=== PATIENT | female | born 1980 | race Caucasian/White ===

== ENCOUNTER 2024-06-27 19:25 | Emergency (ER) | payer OTHER, SELFPAY ==
--- NOTE | 2024-06-27 | ECG_ITS ---
Test Reason : OVERDOSE Blood Pressure : / mmHG Vent. Rate : 103 BPM Atrial Rate : 103 BPM P-R Int : 142 ms QRS Dur : 084 ms QT Int : 378 ms P-R-T Axes : 065 054 043 degrees QTc Int : 495 ms Sinus tachycardia Otherwise normal ECG No previous ECGs available Referred By: Generic ED Physician Electronically Signed By:RAFAT QIU MD
--- NOTE | ~2024-06-27 | XR_ITS ---
EXAMINATION: XR RIBS, BILATERAL CLINICAL INFORMATION: Status post CPR COMPARISON: None available. TECHNIQUE: 3 views of the bilateral ribs were obtained. FINDINGS: Lungs are clear. No consolidation, pneumothorax, or pleural effusion. The cardiomediastinal silhouette and pulmonary vasculature are normal. Osseous structures are unremarkable. Ribs are intact. No fractures are identified. XR/XR ribs BI min 4V w CXR1V IMPRESSION: Unremarkable examination. Electronically signed by: Clifford Estes DO 06/27/2024 09:48 PM EST
[2024-06-27 19:28] VITALS: BP 166/100; PULSE 98; O2SAT 100
[2024-06-27 19:32] VITALS: BP 145/90; PULSE 102; RESP 18; TEMP 36.9; O2SAT 99; BMI 30.7
[2024-06-27 19:41] VITALS: BP 145/90; PULSE 110; RESP 18; TEMP 36.9; O2SAT 98
--- NOTE | 2024-06-27 19:55 | ED.GENADULT ---
HPI - General Adult General Chief complaint: Overdose Stated complaint: OVERDOSE Time Seen by Provider: 06/27/24 19:49 History of Present Illness ED Provider: Dr. Segundo HPI narrative: 43 y/o F patient; without significant PMH; presents via EMS from home with report of unresponsiveness requiring Narcan. The patient states she smoked marijuana with a friend this evening. She also had a few glasses of wine. She denies any other drug use knowingly. EMS report patient was found lying on the ground unresponsive. Narcan was administered x2. Patient did have a brief course of CPR due to pulselessness that resolved after second narcan dose. At this time she denies any complaints. She states that this batch of marijuana was not one she had smoked before. She denies suicidal or homicidal ideation. Related Data Previous Rx's ?Medication ?Instructions ?Recorded naloxone 4 mg/actuation nasal 4 mg intranasal Q2M PRN opioid 06/27/24 spray (Narcan) overdose #2 ea Allergies Allergy/AdvReac Type Severity Reaction Status Date / Time acetaminophen [From VICODIN] Allergy Unknown SOB/HIVES Unverified 05/06/20 15:23 hydrocodone [From VICODIN] Allergy Unknown SOB/HIVES Unverified 05/06/20 15:23 Sulfa (Sulfonamide Allergy Unknown Hives Verified 06/27/24 19:35 Antibiotics) sulfamethoxazole Allergy Unknown HIVES Unverified 05/06/20 15:23 [From Bactrim] trimethoprim [From Bactrim] Allergy Unknown HIVES Unverified 05/06/20 15:23 Review of Systems Review of Systems: Yes all other systems are reviewed and are negative PMFSH Past Medical History Attestation statement: The following information was validated with the patient. Source: unable to obtain Social History Social History Advance Directives: No Advance Directives Information Provided: No Do you have a plan to hurt others: No Plan Physical Exam ED Vital Signs: Vital Signs - 24 hr 06/27/24 19:32 06/27/24 19:41 Temperature 98.4 F 98.4 F Pulse Rate 102 H 110 H Respiratory Rate 18 18 Blood Pressure 145/90 H 145/90 H Pulse Oximetry 99 98 Oxygen Delivery Method Room Air Room Air BMI result Body Mass Index 30.7 Patient is afebrile, tachycardic, and mildly hypertensive Const General: cooperative and no acute distress Orientation/consciousness: patient oriented x3 HENMT Head: Yes normal to inspection and Yes atraumatic Eyes General: appearance normal, both eyes and all related structures Pupils: Equal, round and reactive pupils present EOM: EOMs intact bilaterally Neck Neck: Yes normal visual inspection, Yes full ROM, Yes supple and No tender Chest Chest palpation & inspection: normal inspection of the chest and normal palpation of entire chest wall Resp Effort & Inspection: normal respiratory effort, able to speak in complete sentences, no cough and no respiratory distress Auscultation: clear to auscultation bilaterally Cardio Rate: regular rate Rhythm: regular rhythm Peripheral pulses: Peripheral pulses 2+ throughout GI Inspection: No Abdominal wall edema and No distended Palpation (GI): Soft to palpation, not firm, nontender, no guarding and not rigid Auscultation: normal bowel sounds Back/Spine/Pelvis Back: No back tenderness Neuro General: patient oriented x3 Cranial nerves: Yes Equal, round and reactive pupils present Course Course Course Narrative: Patient is afebrile and hemodynamically stable. Will plan on period of observation. Will obtain XR Ribs as patient did have approx 30 - 60 seconds of CPR. I offered the patient a utox to confirm what she had taken tonight but she declined. Patient was observed for 2 hours without further symptoms requiring narcan. I do not appreciate obvious or displaced rib fx on XR. Patient does not endorse rib or sternum tenderness. No chest wall tenderness on exam. No chest wall ecchymosis on exam. Plan: Discharge to home with PCP follow up Return precautions given Discharge Plan Discharge Clinical Impression: Drug overdose Patient Disposition: Home, Self-Care Instructions: Adult Overdose (ED) Additional Instructions: As we discussed, you were seen today after an overdose - likely of an opiate medication. Recommend you follow up with your PCP within the next 1 - 2 days to discuss your recent emergency department visit. Return to the emergency department with any thoughts of harming yourself or others. Prescriptions: New naloxone [Narcan] 4 mg/actuation spray,non-aerosol 4 mg intranasal Q2M PRN (Reason: opioid overdose) Qty: 2 0RF Rx Instructions: spray 1 dose into ONE nostril; alternate nostrils w each dose until help arrives Print Language: Martiniquais
[2024-06-27 22:10] VITALS: BP 150/79; PULSE 99; RESP 16; TEMP 36.8; O2SAT 98
== END 2024-06-27 22:11 | disposition home or self-care (01) ==
PROVIDERS: Emergency Provider Emergency Medicine; PCP Internal Medicine
DX: R40.4 Transient alteration of awareness (principal); T50.901A Poisoning by unspecified drugs, medicaments and biological substances, accidental (unintentional), initial encounter; Y92.410 Unspecified street and highway as the place of occurrence of the external cause
CPT/HCPCS: 71111; 93005; 99283; 99285

== ENCOUNTER → 2024-06-27 19:37 | Outpatient (BNV) | payer OTHER, SELFPAY | PROVIDERS: Emergency Provider Emergency Medicine; PCP Internal Medicine; Visit Provider Internal Medicine Cardiovascular Disease | DX: R00.0 Tachycardia, unspecified (principal) | CPT/HCPCS: 93010 ==

== ENCOUNTER 2024-09-10 09:08 | Outpatient (AMB) | payer OTHER, SELFPAY ==
--- NOTE | 2024-09-10 09:19 | MHC.PC.OV ---
Vital Signs 09/10/24 09:20 Height 5 ft 2 in Weight 158 lb BMI 28.9 BP 132/90 H Blood Pressure Location Lt brachial Position Sitting Pulse 112 H Pulse Source Pulse Oximeter Pulse Oximetry (%) 97 Oxygen Delivery Method Room Air Intake Visit Reasons: Establish care, MED review Intake Note: Patient here to establish care, Med review [employer] Internship Required: No Accompanied by: Self / Same As Patient Allergies Penicillins Allergy (Intermediate, Verified 09/10/24 09:54) hives,SOB acetaminophen [From VICODIN] Allergy (Unknown, Verified 09/10/24 09:54) SOB/HIVES hydrocodone [From VICODIN] Allergy (Unknown, Verified 09/10/24 09:54) SOB/HIVES Sulfa (Sulfonamide Antibiotics) Allergy (Unknown, Verified 09/10/24 09:54) Hives sulfamethoxazole [From Bactrim] Allergy (Unknown, Verified 09/10/24 09:54) HIVES trimethoprim [From Bactrim] Allergy (Unknown, Verified 09/10/24 09:54) HIVES Medication List - Last Reconciled 09/10/24 by Wendi Ricci PA-C disulfiram 250 mg PO DAILY naloxone 4 mg/actuation (Narcan) 4 mg intranasal Q2M PRN sertraline mg PO DAILY Tobacco use date assessed: 09/10/24 Dental Screening Dental Screen Date: 09/10/24 Did you have a dental visit in the last 12 months?: Yes Did you have a dental problem in the last 6 months where you did not have access to dental care?: No Was dental information given to patient?: Patient has dentist HPI Establish care, MED review HPI Details 43-year-old female coming to the office for the 1st time.? In review of the notes, patient was seen in [facility] 06/27/2024 for likely drug overdose given naloxone and discharged home. Patient tells us today she was previously being seen by [facility]. She was being treated for history of alcohol dependency and anxiety and depression and also monitored for elevated blood pressures. She tells us today she is working on smoking cessation and has tried patches in the past but they give her skin reactions. She also mentioned she has history of seasonal allergies but has noticed black-colored mold in her apartment that seems to be exacerbating her allergies that she is concerned about. She has no other concerns today. [facility] Medical History (Updated 09/10/24 @ 11:01 by Wendi Ricci PA-C) Hx LEEP (loop electrosurgical excision procedure), cervix, Surgical History (Updated 09/10/24 @ 09:25 by Yuridia Landrum Yahir) History of repair of ACL Family History (Updated 09/10/24 @ 10:01 by Wendi Ricci PA-C) Maternal Uncle Kidney malignancy Mother Breast cancer Thyroid cancer Maternal Grandfather Lung cancer Paternal Grandfather Lung cancer Social History (Updated 08/08/24 @ 13:39 by FLAVIO Rodriguez) Housing: House Alcohol intake: former Patient Tobacco Use Status: Current everyday Tobacco user Tobacco use type: Cigarette Cigarettes Per Day: 5 e-Cigarette/Vaping Use: Never Used Second Hand Smoke Exposure: No Substance Use Type: Marijuana service: No Current occupational status: employed Current occupational exposures/hazards: No Cognitive needs: No Hearing needs: No Vision needs: Yes Female Reproductive History Menstrual control method: progestin IUCD Questionnaire PHQ-9 Over the last 2 weeks, how often have you been bothered by any of the following problems? 1. Little interest or pleasure in doing things: several days 2. Feeling down, depressed, or hopeless: several days 3. Trouble falling or staying asleep, or sleeping too much: several days 4. Feeling tired or having little energy: several days 5. Poor appetite or overeating: not at all 6. Feeling bad about yourself - or that you are a failure or have let yourself or your family down: several days 7. Trouble concentrating on things, such as reading the newspaper or watching television: nearly every day 8. Moving or speaking so slowly that other people could have noticed. Or the opposite - being so fidgety or restless that you have been moving around a lot more than usual: nearly every day 9. Thoughts that you would be better off or of hurting yourself in some way: not at all Total score: 11 Depression Screening Interpretation: Positive Depression Screening Follow-up: Existing condition and In treatment Depression Screening Done: Yes 28224 - PHQ-9 Billing: Yes Source: Developed by Drs. Simba Mills, Tressa Kirkland, Charles Pratt and colleagues, with an educational jessica from [employer]. Thrive Questionnaire Date Thrive assessed: 09/10/24 I am a: Patient What is your living situation today?: I have a steady place to live Within the past 12 months, did the food you bought not last and you didn't have the money to get more?: Never true Within the past 12 months, did you worry whether your food would run out before you got money to buy more?: Never true Do you have trouble paying for medicines?: No Do you have trouble getting transportation to medical appointments?: No Do you have trouble paying your heating and electricity bill?: No Do you have trouble taking care of your child, family member or friend?: No Do you have trouble with day-to-day activities such as bathing, preparing meals, shopping, managing finances, etc.?: No Are you currently unemployed and looking for a job?: No Are you interested in more education?: No Please select the resources that you would like help with: None Currently or been in a relationship where the following occur: No concerns reported THRIVE Score: 0 AUDIT C Alcohol Use Questionnaire (AUDIT-C) 1. How often do you have a drink containing alcohol?: Never Total Score: 0 RACHEL-7 AMB Questionnaire RACHEL-7 Date RACHEL - 7 assessed: 09/10/24 Feeling nervous, anxious, or on edge: 3 = Nearly every day Not being able to stop or control worryin = Nearly every day Worrying too much about different things: 3 = Nearly every day Trouble relaxin = Nearly every day Being so restless that it is hard to sit still: 3 = Nearly every day Becoming easily annoyed or irritable: 3 = Nearly every day Feeling afraid as if something awful might happen: 2 = More than half the days Total RACHEL-7 score (0-4 normal; 5-9 mild; 10-14 moderate; 15-21 severe): 20 Source: Developed by Drs. Simba Mills, Tressa Kirkland, Charles Pratt and colleagues, with an educational jessica from [employer]. RACHEL-7 Assessment Billing RACHEL-7 Assessment Tool: RACHEL-7 Assessment 67370 Review of Systems Const Denies body aches, Denies chills, Denies fever(s), Denies headache(s) and Denies poor appetite Eyes Reports no additional complaints ENT Denies dizziness and Denies headache(s) Card Denies chest pain, Denies syncope, Denies edema, Denies irregular heart rhythm, Denies lightheadedness and Denies dyspnea Resp Denies cough and Denies dyspnea GI Denies abdominal pain, Denies constipation, Denies diarrhea, Denies nausea and Denies vomiting Reports no additional complaints Musc Reports no additional complaints and Denies abnormal gait Skin/Breast Reports system reviewed and no additional complaints, except as documented Neuro Denies abnormal gait, Denies dizziness, Denies syncope and Denies headache(s) Psych Reports no additional complaints Physical exam (Primary Care) BMI result Body Mass Index 28.9 Tobacco/Smoking Status: Tobacco use Status Patient Tobacco Use Status Never used Tobacco 08/28/24 13:03 Are you ready to quit: Yes Tobacco cessation counseling provided: Yes Items discussed: Nicotine replacement Relapse Prevention: weight gain after smoking is common and discussed dietary, exercise and/or lifestyle changes Number of minutes spent counselin CPT code: 31644 - 4-10 Minutes Depression Screening Interpretation: Positive Depression Screening Follow-up: Existing condition and In treatment Currently or been in a relationship where the following occur: No concerns reported Const General: cooperative, healthy appearing, comfortable and no acute distress Orientation/consciousness: patient oriented x3 HENMT Head: Yes normocephalic Ears: hearing grossly normal bilaterally General nose exam: Normal external nose present Eyes General: appearance normal, both eyes and all related structures Conjunctivae: conjunctivae normal Neck Neck: Yes full ROM and Yes no lymphadenopathy Resp Effort & Inspection: normal respiratory effort Auscultation: clear to auscultation bilaterally, no crackles, no rales, no rhonchi and no wheezes Cardio Rate: regular rate Rhythm: regular rhythm Skin General skin exam: no rashes or lesions noted Neuro General: patient oriented x3 Gait exam (Neuro): Normal gait present Extrem General: Yes normal to inspection, Yes full ROM and No edema Psych Affect: normal affect Attitude: cooperative Insight: Good insight present (Psych) Judgement: Good judgement present (Psych) Coding Level of Care Code New Pt Level 4 (44112) Diagnoses Tobacco abuse Z72.0 Depression F32.A Anxiety F41.9 Alcohol abuse F10.10 Difficulty concentrating R41.840 Elevated blood pressure reading without diagnosis of hypertension R03.0 Seasonal allergies J30.2 Screening for breast cancer Z12.39 Screening for cervical cancer Z12.4 Additional Codes Vital Signs *Quality* - CPT code: 22619 - 4-10 Minutes ([id number]) PHQ-9 - 16422 - PHQ-9 Billing: Yes ([id number]) RACHEL-7 Assessment Billing - RACHEL-7 Assessment Tool: RACHEL-7 Assessment 14576 ([id number]) Assessment & Plan Assessment & Plan (1) Tobacco abuse: Code(s): Z72.0 - Tobacco use Category: Medical Plan: Patient has been working on smoking cessation. Smoking cigarettes and the use of tobacco can be harmful. We discussed the importance of stopping and options to aid in smoking cessation. Prescription sent for nicotine lozenges. (2) Depression: Code(s): F32.A - Depression, unspecified Category: Medical Plan: Patient has a history of depression was previously being treated with sertraline 50 mg but has mentioned in the last several weeks she has had to cut her pills it have to maintain her prescription longer. She is requesting to increase her sertraline however given that she has been taking a 25 mg dose recommend restarting 50 mg for 1 month and tapering up as appropriate. Patient agrees with the plan. Referral placed to outpatient psych clinic as well as counseling for further management. (3) Anxiety: Code(s): F41.9 - Anxiety disorder, unspecified Category: Medical Plan: Plan to restart the sertraline 50 mg. Referral placed for counseling and outpatient psych clinic. (4) Alcohol abuse: Code(s): F10.10 - Alcohol abuse, uncomplicated Category: Social Hx Plan: Patient currently on Antabuse with good benefit. Was previously getting this from her last PCP. Declining referral to comprehensive Care Clinic. (5) Difficulty concentrating: Code(s): R41.840 - Attention and concentration deficit Category: Medical Plan: Patient complaining of difficulty concentrating and previously diagnosed with ADHD as a child. Referral placed to outpatient psych clinic for establishment of diagnoses and treatment. (6) Elevated blood pressure reading without diagnosis of hypertension: Code(s): R03.0 - Elevated blood-pressure reading, without diagnosis of hypertension Category: Medical Plan: Blood pressure mildly elevated today 132/90 patient states she is under lot of stress but was told she has elevated blood pressure in the past. Prescription sent for automatic blood pressure cuff and advised patient to take blood pressure daily and bring log to next appointment. If blood pressure remains elevated we will consider starting low-dose blood pressure medication. (7) Seasonal allergies: Code(s): J30.2 - Other seasonal allergic rhinitis Category: Medical Plan: Patient has a history of seasonal allergies states that her apartment has dark-colored mold in the windows and on the ceilings. She is concerned this may be black mold that may be contributing to her allergy symptoms. 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 Regarding the mold discussed with patient we do not tests the blood for this type of mold and she should have her apartment inspected if she is concerned about possible mold toxicity. (8) Screening for breast cancer: Code(s): Z12.39 - Encounter for other screening for malignant neoplasm of breast Category: Medical Plan: Referral placed for mammogram. (9) Screening for cervical cancer: Code(s): Z12.4 - Encounter for screening for malignant neoplasm of cervix Category: Medical Plan: Referral placed to gynecology for cervical cancer screening. Plan Ordered for updated blood work and we will have patient follow up in 1 month for annual physical. This note was constructed using voice recognition software. While every effort has been made to ensure accuracy and cross country and track and field coach, still areas may have been included sometimes these areas may affect the content or meeting of the given symptoms. Total time spent caring for the patient today was 30 minutes. This includes time spent before the visit reviewing the chart, time spent during the visit, and time spent after the visit and documentation. Orders: Orders Complete Blood Count Auto Diff Today Z00.00 - Encounter for general adult medical examination without abnormal findings Lipid Panel Today E78.00 - Pure hypercholesterolemia, unspecified Vitamin B12 and Folate Today Z00.00 - Encounter for general adult medical examination without abnormal findings MM tomosynthesis screening BI Today Z12.31 - Encounter for screening mammogram for malignant neoplasm of breast Comprehensive Met. Panel Today Z00.00 - Encounter for general adult medical examination without abnormal findings TSH reflex Free T4 Today Z00.00 - Encounter for general adult medical examination without abnormal findings Free T4 (Free Thyroxine) Today Z00.00 - Encounter for general adult medical examination without abnormal findings Vitamin D 25-OH Total Today Z00.00 - Encounter for general adult medical examination without abnormal findings Referrals Counseling Referral F32.A - Depression, unspecified, F41.9 - Anxiety disorder, unspecified Psychiatry Outpatient Consultation Service F32.A - Depression, unspecified, F41.9 - Anxiety disorder, unspecified, R41.840 - Attention and concentration deficit THORACIC MEDICINE SPECIALIST Referral Z12.4 - Encounter for screening for malignant neoplasm of cervix Allergy & Immunology Referral J30.2 - Other seasonal allergic rhinitis Medications: New sertraline 50 mg PO DAILY 90 tabs 3RF disulfiram 250 mg PO DAILY 90 tabs 2RF miscellaneous medical supply (Blood Pressure Cuff) As directed once daily 1 ea 0RF nicotine (polacrilex) 4 mg buccal Q8H PRN 24 ea 1RF nicotine cravings
[2024-09-10 09:20] VITALS: BP 132/90; PULSE 112; O2SAT 97; BMI 28.9
--- OUTSIDE RECORDS SUMMARY | 2024-09-10 09:32 | XMS_ITS | Encounter Summary ---
Author Organization [employer] Address [address] [place] [address] [address] [place] [address] Care Team Providers Care Well Surveying Engineer Name Role Phone Unavailable Primary Care Provider Unavailabl e Reason for Visit * Reason Onset Date Comments case back from lab 12/28/2023 Encounter Details Date Type Department Care Team ([facility] Contact Info) Description 12/28/2023 Telephone [facility] [address] [place] [address] Gladys Greenwood BDS case back from lab Social History Tobacco Use Types Packs/Day Years Used Date Smoking Tobacco: Every Day Cigarettes Smokeless Tobacco: Never Alcohol Use Standard Drinks/Week Comments Yes 0 (1 standard drink = 0.6 oz pur e alcohol) Comments Unknown Sex and Gender Information Value Date Recorded Sex Assigned at Female 06/19/2022 10:16 AM EDT Legal Sex Female 10:16 AM EDT Gender Identity Female 07/17/2023 1:06 PM EST Sexual Orientation Choose not to disclose 2022 1:06 PM EST documented as of this encounter Miscellaneous Notes * Telephone Encounter - Neelam Kincaid - 01/10/2024 9:51 AM EDT Good morning Doctor ,patient called to see if her dentures came in would like the soonest apt you have available . * Telephone Encounter - Florencia Fraser - 01/07/2024 8:09 AM EDT Patient is checking in on the status of her case and when she can have an appt for delivery. * Telephone Encounter - Neelam Kincaid - 12/28/2023 11:51 AM EDT Patient would like the doctor to call her she has a question .about her dentures documented in this encounter Plan of Treatment Not on file documented as of this encounter Visit Diagnoses Not on filedocumented in this encounter
--- OUTSIDE RECORDS SUMMARY | 2024-09-10 09:32 | XMS_ITS | Clinical Summary ---
Author Organization [employer] [facility] Address [address] [place] [address] [place] [address] Care Team Providers Care Crime Scene Photographer Name Role Phone Unavailable Primary Care Provider Unavailabl e Allergies Active Allergy Reactions Criticality Noted Date Comments Amoxicillin 07/26/2023 Bee Venom 07/26/2023 Penicillins 07/26/2023 Sulfa Antibiotics 07/26/2023 Medications disulfiram (Antabuse) 250 MG tablet 06/08/2023 Active sertraline (Zoloft) 50 MG tablet 06/11/2023 Active Active Problems No known active problems Social History Tobacco Use Types Packs/Day Years Used Date Smoking Tobacco: Every Day Cigarettes Smokeless Tobacco: Never Tobacco Cessation:Ready to Q uit: Yes; Counseling Given: Yes Alcohol Use Standard Drinks/Week Comments Yes 0 (1 standard drink = 0.6 oz pur e alcohol) Comments Unknown Sex and Gender Information Value Date Recorded Sex Assigned at Female 06/19/2022 10:16 AM EDT Legal Sex Female 10:16 AM EDT Gender Identity Female 07/17/2023 1:06 PM EST Sexual Orientation Choose not to disclose 2022 1:06 PM EST Plan of Treatment Health Maintenance Due Date Last Done Comments CT Colonography 1978 Colonoscopy 1978 Colorectal Cancer Screening 1978 Dental Oral Exam 1978 Dental Prophylaxis 1978 Dental X-Ray: Bitewings 1978 Depression Screening 1978 FIT DNA/Cologuard 1978 FIT 1978 FOBT 1978 HIV Screening 1978 Lipid Panel 1978 SDOH Screening 1978 Sigmoidoscopy 1978 Pneumococcal Vaccine: Pediatrics (0 to 5 Years) and At-Risk Patients (6 to 64 Years) (1 of 2 - PCV) 1984 Alcohol/Substance Use Screening 1990 Hepatitis C Screening 1996 Hepatitis B Vaccines (1 of 3 - 19+ 3-dose series) 1997 Pap Smear 1999 Cervical Cancer Screening 2008 HPV/Cotest 2008 Mammogram 2018 DTaP/Tdap/Td Vaccines (4 - T d or Tdap) 02/18/2023 02/18/2013, 04/18/2012, 05/15/2007 COVID-19 Vaccine (3 - 2023-2 5 season) 2024 01/18/2021, 12/21/2020 Influenza Vaccine (#1) 2024 3, 05/08/2012, 11/07/2010 Tobacco Screening 01/10/2025 01/11/2024 Dental X-Ray: Full Mouth 07/27/2026 07/26/2023 Zoster Vaccines (1 of 2) 2028 RSV Patients and Patients Aged 60 years or older (1 - 1-dose 75+ series) 2053 HIB Vaccines Aged Out No longer eligi ble based on patient's age to complete this topic HPV Vaccines Aged Out No longer eligi ble based on patient's age to complete this topic Hepatitis A Vaccines Aged Out No long er eligible based on patient's age to complete this topic IPV Vaccines Aged Out No longer eligi ble based on patient's age to complete this topic Meningococcal Vaccine Aged Out No heather sanjay eligible based on patient's age to complete this topic RSV under 20 months Aged Out No longe r eligible based on patient's age to complete this topic Rotavirus Vaccines Aged Out No longer eligible based on patient's age to complete this topic Procedures Procedure Name Priority Date/Time Associated Diagnosis Comments PANORAMIC RADIOGRAPHIC IMAGE Routine 07/26/2023 3:30 PM EST from Last 3 Months or Most Recently Relevant to Health Maintenance Insurance [employer] [employer] ADULT Member Subscriber Plan / Payer (Ef fective 2023-Present) Name:Karine Wilkerson Relation to Subscriber:Self Name:Danuta Wilkersonnishelley Rowan Payer ID:Not on file Group ID:Not on file Type:Not on file Address: [place] [phone]
--- OUTSIDE RECORDS SUMMARY | 2024-09-10 09:32 | XMS_ITS | Encounter Summary ---
Author Organization [employer] Address [address] [place] [address] [address] [place] [address] Care Team Providers Care Abrading Machine Tender Name Role Phone Unavailable Primary Care Provider Unavailabl e Encounter Details Date Type Department Care Team (Late st Contact Info) Description 09/05/2023 Abstract [facility] ADULT [facility] [address] [place] [address] Gladys Greenwood BDS Social History Tobacco Use Types Packs/Day Years [...] PM EST documented as of this encounter Plan of Treatment Not on file documented as of this encounter Visit Diagnoses Not on filedocumented in this encounter
--- OUTSIDE RECORDS SUMMARY | 2024-09-10 09:32 | XMS_ITS | Encounter Summary ---
Author Organization [employer] Address [address] [place] [address] [address] [place] [address] Care Team Providers Care Business Continuity Global Director Name Role Phone Unavailable Primary Care Provider Unavailabl e Reason for Visit * Reason Onset Date Comments Prior Authorization 08/07/2023 Encounter Details Date Type Department Care Team ([facility] st Contact Info) Description 08/07/[address] [facility] ADULT D[facility] [address] [place] [address] Gladys Greenwood BDS Prior Authorization Social History Tobacco Use Types Packs/Day Years [...] encounter Miscellaneous Notes * Telephone Encounter - Florencia Fraser - 08/07/2023 3:02 PM EST Patient called in stating that she contacted the insurance and nothing ahs been submitted. I explined to the patient that the insurance covers dentures every 7years and she is not due until 04/03/2024. She stated that she contacted the insurance and they stated that it can be submitted, it would get denied and then it would have to be submitted again and they would approved due to her being 7 months shy of the 7 years. I informed patient that I would relay information to the office and they would take it from there. documented in this encounter Plan of Treatment Not on file documented as of this encounter Visit Diagnoses Not on filedocumented in this encounter
--- OUTSIDE RECORDS SUMMARY | 2024-09-10 09:33 | XMS_ITS | Data Portability ---
Author Organization [facility], , [facility] Address [address] [place] [address] Care Team Providers Care Rail Walker Name Role Phone GUANACO COSME Primary Care Provide r Assessment Encounter Date Assessment Date Assessment LastModified by Organization Details LastModified Time 06/13/2013 06/13/2013 Please follow up in 2 weeks. [email or web address] Not available 06/13/2013 12:09:33 Plan of Treatment Reminders Order Date Submit Date Provider Last Modified By Organization Details Last Modified Time Details Appointments None recorded. Lab drugs of abuse screen (6) - Drug Name/Date and Time last dose:Morp kyle 6am 02/06/2013 , Oxycodone 6 am 02/06/20132012 013 [facility], [address] [place] [address], [address], 3 04:16:55 opiates, expanded by GC/ms urine - Morphine 6am 02/06/2013 , Oxycodone 6 am 02/06/20132012 013 [facility], [address] [place] [address], [address], 3 04:16:55 drugs of abuse screen (6) - Drug Name/Date and Time last dose:MORP KYLE 05/07/13 @ 6:30 AMOXYCODO NE @ 6:30 AM 2012 013 [facility], [address] [place] [address], [address], 3 07:21:12 opiates, expanded by GC/ms urine [address] [facility], [address] [facility], [place], [address], 3 22:10:00 Referral orthopedi c referral - Current pt of yours, right knee injury, please send office notes. she will be schedulin g followup. 2012 013 [facility], [address] [place] [address] [place], [address], 3 07:58:54 Procedures None recorded. Surgeries None recorded. Imaging None recorded. Medication Orders diclofena c sodium 50 mg tablet,de layed release 2012 013 [facility], [address] [place], [address], 3 14:49:02 Silvadene 1 % topical cream 2012 013 [facility], [address] [place], [address], 3 14:49:02 oxycodone 10 mg tablet 2012 013 [facility], [address] [place], [address], 3 04:20:31 oxycodone 5 mg tablet 2012 013 [facility], [address] [place], [address], 3 14:49:02 morphine ER 30 mg tablet,ex tended release 2012 013 [facility], [address] [place] [address], [address], 3 15:19:23 oxycodone 10 mg tablet 2012 013 [facility], [address] [place], [address], 3 15:19:23 citalopra m 40 mg tablet 2012 013 [facility], [address] [place], [address], 3 12:35:59 Abilify 2 mg tablet 2012 013 tkreek [facility], [address] [place], [address], 3 13:56:46 Patient TargetsNo targets recorded. Patient Instructions Encounter Date Encounter Id Patient Instructions Last Modified By Organization Details Last Modified Time 02/06/2013 [id number] My Health To Do List Specific Analgesia Plan: {{Continue present regimen* Adjust dose of present analgesic Switch analgesics Add/Ad just concomitant therapy Discontin ue/taper off opioid therapy}}Specific Goals for next visit {{increase exercise* start stress management improv e sleeping start Yoga start TaiChi see therapist}}The patient is currently {{at* not at}}their goal of safe, stable use of narcotic pain medication to improve their functioning in life. Since the last visit there has been {{activity of concern no activity of concern*}}:{{# ov eruse of meds request for an early refill abuse of staff noncomplian ce with UDS or pill count requests abnormal UDS}}Patient today is {{at high risk at moderate risk at low risk*}}for {{abuse of meds* misuse of meds}}. Monitoring will include {{pill counts repeat UDS* closer follow-up with shorter scripts}}. Patients current goals of {{better sleep more activity* return to work return to school improved ADL's improved self care improved function in roles}}were discussed with patient, unlikelihood of 100% reduction in pain made clear. Patient has read narcotics contract and understands the properties of narcotic medication. [email or web address] Not available 02/06/2013 13:12:35 05/07/2013 [id number] My Health To Do List As we discussed and agreed upon at your visit please work on the following: My Health To Do List Specific Analgesia Plan: {{Continue present regimen* Adjust dose of present analgesic Switch analgesics Add/Ad just concomitant therapy Discontin ue/taper off opioid therapy}} Specific Goals for next visit {{increase exercise* start stress management improv e sleeping start Yoga start TaiChi see therapist}}The patient is currently {{at* not at}} their goal of safe, stable use of narcotic pain medication to improve their functioning in life. Since the last visit there has been {{activity of concern no activity of concern*}}:{{# ov eruse of meds request for an early refill abuse of staff noncomplian ce with UDS or pill count requests abnormal UDS}} Patient today is {{at high risk at moderate risk at low risk*}} for {{abuse of meds* misuse of meds}}. Monitoring will include {{pill counts repeat UDS* closer follow-up with shorter scripts}}. Patients current goals of {{better sleep more activity* return to work return to school improved ADL's improved self care improved function in roles}} were discussed with patient, unlikelihood of 100% reduction in pain made clear. Patient has read narcotics contract and understands the properties of narcotic medication. 25 min visit and over 50% time was spent counseling knee pain, plan, and medictation. [email or web address] Not available 05/07/2013 16:53:34 06/13/2013 [id number] 25 min visit and over 50% time was spent counseling medication safety, new medication use. [email or web address] Not available 06/13/2013 12:16:32 Reason for Referral Current pt of yours, right k nee injury, please send office notes. she will be scheduling followup. Referring Physician: Lamberto Joyce, Family Medicine, Encounter Date: 05/07/2013 Results Created Date Observation Date Name Description Value Unit Range Abnormal Flag Note LastModifiedBy Organization Detail LastModifiedTime 02/08/20 13 02/07/2013 drugs of abuse scree n (6) amphetamine NEG. negati ve Not Available [address], [place], [address], 02/07/2013 15:51:56 02/08/20 13 02/07/2013 drugs of abuse scree n (6) barbiturates NEG. negati ve Not Available [address], [address], 02/07/2013 15:51:56 02/08/20 13 02/07/2013 drugs of abuse scree n (6) benzodiazepi ne NEG. negati ve Not Available [address], [address], 02/07/2013 15:51:56 02/08/20 13 02/07/2013 drugs of abuse scree n (6) cocaine NEG. negati ve Not Available [address], [address], 02/07/2013 15:51:56 02/08/20 13 02/07/2013 drugs of abuse scree n (6) opiates POS. negati ve gcop= urine sampl e [facility] es by GC/MS . Not Available [address], [address], 02/07/2013 15:51:56 02/08/20 13 02/07/2013 drugs of abuse scree n (6) methadone NEG. negati ve syva emit II limit s of detec tion (cutt -off value s) jose expan d: amphe tamin es: 1000 NG/mL opiat es: 300 NG/mL sanjay tuate s: 200 NG/mL canna binoi ds: 50 NG/mL benzo diaze pines : 200 NG/mL phenc yclid ine: 25 NG/mL cocai ne: 300 NG/mL metha done: 300 NG/mL Not Available [address], [address], 02/07/2013 15:51:56 02/08/20 13 02/11/2013 opiat e confi rm GC morphine >76496 NG/mL high Not Available [facility] [address], [address], 02/11/2013 06:01:32 02/08/20 13 02/11/2013 opiat e confi rm GC codeine NONE DETECT ED NG/mL normal Not Available [facility] [address], [place], [address], 02/11/2013 06:01:32 02/08/20 13 02/11/2013 opiat e confi rm GC hydrocodone NONE DETECT ED NG/mL normal Not Available [facility] [address], [place], [address], 02/11/2013 06:01:32 02/08/20 13 02/11/2013 opiat e confi rm GC hydromorphon e NONE DETECT ED NG/mL normal Not Available [facility] [address], [place], [address], 02/11/2013 06:01:32 02/08/20 13 02/11/2013 opiat e confi rm GC oxycodone 7100 NG/mL high Not Available [facility] [address], [place], [address], 02/11/2013 06:01:32 02/08/20 13 02/11/2013 opiat e confi rm GC Unknown Analyte this test was perfo rmed by GC/MS , 100 NG/mL cutof f. Not Available [facility] [address], [place], [address], 02/11/2013 06:01:32 05/07/20 13 05/09/2013 drugs of abuse scree n (6) amphetamine NEG. negati ve Not Available [address], [address], 05/09/2013 07:21:12 05/07/20 13 05/09/2013 drugs of abuse scree n (6) barbiturates NEG. negati ve Not Available [address], [address], 05/09/2013 07:21:12 05/07/20 13 05/09/2013 drugs of abuse scree n (6) benzodiazepi ne NEG. negati ve Not Available [address], [address], 05/09/2013 07:21:12 05/07/20 13 05/09/2013 drugs of abuse scree n (6) cocaine NEG. negati ve Not Available [address], [address], 05/09/2013 07:21:12 05/07/20 13 05/09/2013 drugs of abuse scree n (6) opiates POS. negati ve gcop= urine sampl e sent to [facility] op[facility] es by GC/MS . Not Available [address], [address], 05/09/2013 07:21:12 05/07/20 13 05/09/2013 drugs of abuse scree n (6) methadone NEG. negati ve syva emit II limit s of detec tion (cutt -off value s) jose expan d: amphe tamin es: 1000 NG/mL opiat es: 300 NG/mL sanjay tuate s: 200 NG/mL canna binoi ds: 50 NG/mL benzo diaze pines : 200 NG/mL phenc yclid ine: 25 NG/mL cocai ne: 300 NG/mL metha done: 300 NG/mL Not Available [address], [address], 05/09/2013 07:21:12 05/07/20 13 05/21/2013 opiat e confi rm GC morphine 995 NG/mL high Not Available [facility] [address], [address], 05/21/2013 22:10:00 05/07/20 13 05/21/2013 opiat e confi rm GC codeine NONE DETECT ED NG/mL normal Not Available [facility] [address] [place], [address], 05/21/2013 22:10:00 05/07/20 13 05/21/2013 opiat e confi rm GC hydrocodone NONE DETECT ED NG/mL normal Not Available [facility] [address], [place], [address], 05/21/2013 22:10:00 05/07/20 13 05/21/2013 opiat e confi rm GC hydromorphon e NONE DETECT ED NG/mL normal Not Available [facility] [address], [place], [address], 05/21/2013 22:10:00 05/07/20 13 05/21/2013 opiat e confi rm GC oxycodone 1600 NG/mL high Not Available [facility] [address], [place], [address], 05/21/2013 22:10:00 05/07/20 13 05/21/2013 opiat e confi rm GC Unknown Analyte this test was perfo rmed by GC/MS , 100 NG/mL cutof f. Not Available [facility] [address], [place], [address], 05/21/2013 22:10:00 01/28/20 14 01/27/2014 CBC w/dif f WBC 6.9 K/uL 3.4-11 .2 Not Available [facility] [address] [place] [address], [address], 01/27/2014 14:51:40 01/28/20 14 01/27/2014 CBC w/dif f RBC 3.93 M/uL 3.80-4 .80 Not Available [facility] [address] [place] [address], [address], 01/27/2014 14:51:40 01/28/20 14 01/27/2014 CBC w/dif f hemoglobin 13.7 g/dL 12.0-1 5.0 Not Available [facility] [address] [place] [address], [address], 01/27/2014 14:51:40 01/28/20 14 01/27/2014 CBC w/dif f hematocrit 40.6 % 36.0-4 6.0 Not Available [facility] [address] [place] [address], [address], 01/27/2014 14:51:40 01/28/20 14 01/27/2014 CBC w/dif f MCV 103.3 fL 79.0-9 8.0 high Not Available [facility] [address] [place] [address], [address], 01/27/2014 14:51:40 01/28/20 14 01/27/2014 CBC w/dif f MCH 34.9 pg 27.0-3 4.8 high Not Available [facility] [address] [place] [address], [address], 01/27/2014 14:51:40 01/28/20 14 01/27/2014 CBC w/dif f MCHC 33.7 g/dL 31.5-3 6.0 Not Available [facility] [address] [place] [address], [address], 01/27/2014 14:51:40 01/28/20 14 01/27/2014 CBC w/dif f RDW 15.5 % 10.8-1 4.6 high Not Available [facility] [address] [place] [address], [address], 01/27/2014 14:51:40 01/28/20 14 01/27/2014 CBC w/dif f MPV 10.1 fL 7.2-10 .5 Not Available [facility] [address] [place] [address], [address], 01/27/2014 14:51:40 01/28/20 14 01/27/2014 CBC w/dif f platelet count 267 K/uL 130-40 0 Not Available [facility] [address] [place] [address], [address], 01/27/2014 14:51:40 01/28/20 14 01/27/2014 CBC w/dif f neutrophils 72.5 % 45.3-7 7.7 Not Available [facility] [address] [place], [address], 01/27/2014 14:51:40 01/28/20 14 01/27/2014 CBC w/dif f lymphocytes 20.1 % 12.3-3 9.7 Not Available [facility] [address] [place] [address], [address], 01/27/2014 14:51:40 01/28/20 14 01/27/2014 CBC w/dif f monocytes 6.7 % 4.1-12 .8 Not Available [facility] [address] [place] [address], [address], 01/27/2014 14:51:40 01/28/20 14 01/27/2014 CBC w/dif f eosinophils 0.40 % 0.00-7 .20 Not Available [facility] [address] [place] [address], [address], 01/27/2014 14:51:40 01/28/20 14 01/27/2014 CBC w/dif f basophils 0.00 % 0.00-2 .80 Not Available [facility] [address] [place] [address], [address], 01/27/2014 14:51:40 01/28/20 14 01/27/2014 CBC w/dif f absolute neutrophil 5.0 K/uL 1.4-7. 7 Not Available [facility] [address] [place] [address], [address], 01/27/2014 14:51:40 01/28/20 14 01/27/2014 CBC w/dif f absolute lymphocyte 1.4 K/uL 0.6-3. 2 Not Available [facility] [address] [place] [address], [address], 01/27/2014 14:51:40 01/28/20 14 01/27/2014 CBC w/dif f absolute monocytes 0.5 K/uL 0.1-0. 6 Not Available [facility] [address] [place] [address], [address], 01/27/2014 14:51:40 01/28/20 14 01/27/2014 CBC w/dif f absolute eosinophil 0.03 K/uL 0.01-0 .50 Not Available [facility] [address] [place] [address], [address], 01/27/2014 14:51:40 01/28/20 14 01/27/2014 CBC w/dif f absolute basophils 0.00 K/uL Not Available [facility] [address] [place] [address], [address], 01/27/2014 14:51:40 01/28/20 14 01/27/2014 CBC w/dif f immature granulocyte 0.30 % 0.00-0 .50 Not Available [facility] [address] [place] [address], [address], 01/27/2014 14:51:40 01/28/20 14 01/27/2014 CBC w/dif f absolute immature granulocyte 0.02 K/uL 0.00-0 .03 Not Available [facility] [address] [place] [address], [address], 01/27/2014 14:51:40 01/28/20 14 01/27/2014 lipid panel cholesterol 267 mg/dL 0-240 high Not Available [facility] [address] [place] [address], [address], 01/27/2014 16:53:35 01/28/20 14 01/27/2014 lipid panel triglyceride s 98 mg/dL 30-160 Not Available [facility] [address] [place], [address], 01/27/2014 16:53:35 01/28/20 14 01/27/2014 lipid panel HDL cholesterol 124 mg/dL inter preta tion: risk level femal es decre ased >55mg /dL avera ge 50-55 mg/dL incre ased <50 mg/dL Not Available [facility] [address] [place] [address], [address], 01/27/2014 16:53:35 01/28/20 14 01/27/2014 lipid panel LDL cholesterol 123 mg/dL inter preta tion: axel able level : <130 borde agnesine high: 130 - 159 high level : >160 Not Available [facility] [address] [place] [address], [address], 01/27/2014 16:53:35 01/28/20 14 01/27/2014 lipid panel chol/HDL risk fact 2.15 3.27-4 .44 low Not Available [facility] [address] [place] [address], [address], 01/27/2014 16:53:35 01/28/20 14 01/27/2014 compr ehens yogesh metab olic panel glucose 114 mg/dL 70-99 high Not Available [facility] [address] [place] [address], [address], 01/27/2014 16:53:35 01/28/20 14 01/27/2014 compr ehens yogesh metab olic panel BUN 6 mg/dL 6-19 Not Available [facility] [address] [place], [address], 01/27/2014 16:53:35 01/28/20 14 01/27/2014 compr ehens yogesh metab olic panel creatinine 0.6 mg/dL 0.5-1. 5 Not Available [facility] [address] [place], [address], 01/27/2014 16:53:35 01/28/20 14 01/27/2014 compr ehens yogesh metab olic panel GFR >60 Not Available [facility] [address] [place], [address], 01/27/2014 16:53:35 01/28/20 14 01/27/2014 compr ehens yogesh metab olic panel sodium 141 mEq/L 133-14 5 Not Available [facility] [address] [place], [address], 01/27/2014 16:53:35 01/28/20 14 01/27/2014 compr ehens yogesh metab olic panel potassium 4.1 mEq/L 3.3-5. 1 Not Available [facility] [address] [place], [address], 01/27/2014 16:53:35 01/28/20 14 01/27/2014 compr ehens yogesh metab olic panel chloride 104 mEq/L 96-108 Not Available [facility] [address] [place], [address], 01/27/2014 16:53:35 01/28/20 14 01/27/2014 compr ehens yogesh metab olic panel CO2 27 mEq/L 21-35 Not Available [facility] [address] [place], [address], 01/27/2014 16:53:35 01/28/20 14 01/27/2014 compr ehens yogesh metab olic panel calcium 8.2 mg/dL 8.4-10 .3 low Not Available [facility] [address] [place], [address], 01/27/2014 16:53:35 01/28/20 14 01/27/2014 compr ehens yogesh metab olic panel total bilirubin 0.5 mg/dL 0.0-1. 5 Not Available [facility] [address] [place], [address], 01/27/2014 16:53:35 01/28/20 14 01/27/2014 compr ehens yogesh metab olic panel alkaline phosphatase 226 U/L 39-117 high Not Available [facility] [address] [place], [address], 01/27/2014 16:53:35 01/28/20 14 01/27/2014 compr ehens yogesh metab olic panel AST (SGOT) 64 U/L 0-37 high Not Available [facility] [address] [place], [address], 01/27/2014 16:53:35 01/28/20 14 01/27/2014 compr ehens yogesh metab olic panel ALT (SGPT) 39 U/L 0-40 Not Available [facility] [address] [place], [address], 01/27/2014 16:53:35 01/28/20 14 01/27/2014 compr ehens yogesh metab olic panel total protein 6.0 g/dL 6.5-8. 0 low Not Available [facility] [address] [place], [address], 01/27/2014 16:53:35 01/28/20 14 01/27/2014 compr ehens yogesh metab olic panel albumin 3.7 g/dL 3.9-4. 8 low Not Available [facility] [address] [place], [address], 01/27/2014 16:53:35 01/28/20 14 01/27/2014 compr ehens yogesh metab olic panel globulin 2.3 gm/dL 1.0-4. 8 Not Available [facility] [address] [place], [address], 01/27/2014 16:53:35 01/28/20 14 01/27/2014 compr ehens yogesh metab olic panel A/G ratio 1.6 gm/dL 1.0-4. 8 Not Available [facility] [address] [place], [address], 01/27/2014 16:53:35 01/28/20 14 01/27/2014 compr ehens yogesh metab olic panel anion gap 14 mEq/L 10-20 Not Available [facility] [address] [place] [address], [address], 01/27/2014 16:53:35 01/28/20 14 01/27/2014 thyro id stimu latin g hormo ne (TSH) TSH 1.420 mU/L 0.270- 4.20 Not Available [facility] [address] [place] [address], [address], 01/27/2014 16:53:36 02/25/20 14 02/24/2014 hepat ic funct ion panel alkaline phosphatase 328 U/L 39-117 high Not Available [facility] [address] [place] [address], [address], 02/24/2014 16:23:30 02/25/20 14 02/24/2014 hepat ic funct ion panel total bilirubin 0.4 mg/dL 0.0-1. 5 Not Available [facility] [address] [place] [address], [address], 02/24/2014 16:23:30 02/25/20 14 02/24/2014 hepat ic funct ion panel bilirubin direct <0.2 mg/dL 0.0-0. 3 Not Available [facility] [address] [place] [address], [address], 02/24/2014 16:23:30 02/25/20 14 02/24/2014 hepat ic funct ion panel bilirubin indirect see below mg/dL not able to calcu late. Not Available [facility] [address] [place], [address], 02/24/2014 16:23:30 02/25/20 14 02/24/2014 hepat ic funct ion panel AST (SGOT) 125 U/L 0-37 high Not Available [facility] [address] [place], [address], 02/24/2014 16:23:30 02/25/20 14 02/24/2014 hepat ic funct ion panel ALT (SGPT) 49 U/L 0-40 high Not Available [facility] [address] [place] [address], [address], 02/24/2014 16:23:30 02/25/20 14 02/24/2014 hepat ic funct ion panel total protein 6.2 g/dL 6.5-8. 0 low Not Available [facility] [address] [place] [address], [address], 02/24/2014 16:23:30 02/25/20 14 02/24/2014 hepat ic funct ion panel albumin 3.9 g/dL 3.9-4. 8 Not Available [facility] [address] [place], [address], 02/24/2014 16:23:30 02/25/20 14 02/24/2014 hepat ic funct ion panel globulin 2.3 gm/dL 1.0-4. 8 Not Available [facility] [address] [place] [address], [address], 02/24/2014 16:23:30 02/25/20 14 02/24/2014 hepat ic funct ion panel A/G ratio 1.7 gm/dL 1.0-4. 8 Not Available [facility] [address] [place] [address], [address], 02/24/2014 16:23:30 02/25/20 14 02/25/2014 hepat itis B surfa ce Ab hep B surface Ab Negati ve abnormal unvac cinat ed: negat yogesh vacci nated : posit yogesh Not Available [facility] [address] [place] [address], [address], 02/25/2014 13:43:42 02/25/20 14 02/25/2014 hepat itis C Ab HCV Ab screen,serum Negati ve negati ve Not Available [facility] [address] [place] [address], [address], 02/25/2014 13:43:43 02/25/20 14 02/25/2014 hepat itis A Ab w/ igm refle x hepatitis A total see below negati ve negat yogesh Not Available [facility] [address] [place] [address], [address], 02/25/2014 13:43:43 06/03/20 15 06/03/2015 CBC w/ auto diff WBC 8.6 K/uL 3.4-11 .2 Not Available [facility] [address] [place] [address], [address], 06/03/2015 16:11:11 06/03/20 15 06/03/2015 CBC w/ auto diff RBC 4.24 M/uL 3.80-4 .80 Not Available [facility] [address] [place] [address], [address], 06/03/2015 16:11:11 06/03/20 15 06/03/2015 CBC w/ auto diff hemoglobin 15.4 g/dL 12.0-1 5.0 high Not Available [facility] [address] [place] [address], [address], 06/03/2015 16:11:11 06/03/20 15 06/03/2015 CBC w/ auto diff hematocrit 44.8 % 36.0-4 6.0 Not Available [facility] [address] [place] [address], [address], 06/03/2015 16:11:11 06/03/20 15 06/03/2015 CBC w/ auto diff MCV 105.7 fL 79.0-9 8.0 high Not Available [facility] [address] [place] [address], [address], 06/03/2015 16:11:11 06/03/20 15 06/03/2015 CBC w/ auto diff MCH 36.3 pg 27.0-3 4.8 high Not Available [facility] [address] [place] [address], [address], 06/03/2015 16:11:11 06/03/20 15 06/03/2015 CBC w/ auto diff MCHC 34.4 g/dL 31.5-3 6.0 Not Available [facility] [address] [place] [address], [address], 06/03/2015 16:11:11 06/03/20 15 06/03/2015 CBC w/ auto diff RDW 15.3 % 10.8-1 4.6 high Not Available [facility] [address] [place] [address], [address], 06/03/2015 16:11:11 06/03/20 15 06/03/2015 CBC w/ auto diff MPV 10.5 fL 9.4-12 .4 Not Available [facility] [address] [place] [address], [address], 06/03/2015 16:11:11 06/03/20 15 06/03/2015 CBC w/ auto diff platelet count 239 K/uL 130-40 0 Not Available [facility] (Outpatient) [address] [place] [address], [id number], 06/03/2015 16:11:11 06/03/20 15 06/03/2015 CBC w/ auto diff neutrophils 73.4 % 45.3-7 7.7 Not Available [facility] (Outpatient) [address] [place] [address], [id number], 06/03/2015 16:11:11 06/03/2006/03/2015 CBC w/ auto diff lymphocytes 19.9 % 12.3-3 9.7 Not Available [facility] (Outpatient) [address] [place] [address], [id number], 06/03/2015 16:11:11 06/03/20 15 06/03/2015 CBC w/ auto diff monocytes 6.2 % 4.1-12 .8 Not Available [facility] (Outpatient) [address] [place] [address], [address], 06/03/2015 16:11:11 06/03/2006/03/2015 CBC w/ auto diff eosinophils 0.30 % 0.00-7 .20 Not Available [facility] (Outpatient) [address] [place] [address], [id number], 06/03/2015 16:11:11 06/03/20 15 06/03/2015 CBC w/ auto diff basophils 0.10 % 0.00-2 .80 Not Available [facility] (Outpatient) [address] [place] [address], [id number], 06/03/2015 16:11:11 06/03/2006/03/2015 CBC w/ auto diff absolute neutrophil 6.3 K/uL 1.4-7. 7 Not Available [facility] (Outpatient) [address] [place] [address], [id number], 06/03/2015 16:11:11 06/03/20 15 06/03/2015 CBC w/ auto diff absolute lymphocyte 1.7 K/uL 0.6-3. 2 Not Available [facility] (Outpatient) [address] [place], [address], 06/03/2015 16:11:11 06/03/20 15 06/03/2015 CBC w/ auto diff absolute monocytes 0.5 K/uL 0.1-0. 6 Not Available [facility] (Outpatient) [address] [place], [address], 06/03/2015 16:11:11 06/03/20 15 06/03/2015 CBC w/ auto diff absolute eosinophil 0.03 K/uL 0.01-0 .50 Not Available [facility] (Outpatient) [address] [place] [address], [id number], 06/03/2015 16:11:11 06/03/20 15 06/03/2015 CBC w/ auto diff absolute basophils 0.01 K/uL Not Available [facility] (Outpatient) [address] [place], [address], 06/03/2015 16:11:11 06/03/20 15 06/03/2015 CBC w/ auto diff immature granulocyte 0.10 % 0.00-0 .50 Not Available [facility] (Out[facility]) [address] [place] [address], [id number], 06/03/2015 16:11:11 06/03/20 15 06/03/2015 CBC w/ auto diff absolute immature granulocyte 0.01 K/uL 0.00-0 .03 Not Available [facility] (Out[facility]) [address] [place], [address], 06/03/2015 16:11:11 06/03/20 15 06/03/2015 vitam in D, 25-hy droxy , total , serum 25-hydroxy.D 10 NG/mL >=30 low Not Available [facility] (Outpatient) [address] [place] [address], [address], 06/03/2015 17:31:16 06/03/2006/03/2015 CMP, serum or plasm a glucose 170 mg/dL 70-99 high Not Available [facility] (Outpatient) [address] [place] [address], [address], 06/03/2015 17:42:12 06/03/2006/03/2015 CMP, serum or plasm a BUN 5 mg/dL 6-19 low Not Available [facility] (Outpatient) [address] [place] [address], [address], 06/03/2015 17:42:12 06/03/2006/03/2015 CMP, serum or plasm a creatinine 0.6 mg/dL 0.5-1. 5 Not Available [facility] (Outpatient) [address] [place] [address], [address], 06/03/2015 17:42:12 06/03/2006/03/2015 CMP, serum or plasm a GFR >60 mL/mi n >60 NKDEP (Chrissy onal Kidne y Disea se Educa tion Progr am) does not endor se the use of the MDRD ([place] ficat ion of Diet in Renal Disea se) equat ion for estim ating GFR in patie nts that are not betwe en the ages of 18 and 70. Not Available [facility] (Outpatient) [address] [place] [address], [address], 06/03/2015 17:42:12 06/03/2006/03/2015 CMP, serum or plasm a sodium 136 mEq/L 133-14 5 Not Available [facility] (Outpatient) [address] [place] [address], [id number], 06/03/2015 17:42:12 06/03/2006/03/2015 CMP, serum or plasm a potassium 3.8 mEq/L 3.3-5. 1 Not Available [facility] (Out[facility]) [address] [place] [address], [address], 06/03/2015 17:42:12 06/03/2006/03/2015 CMP, serum or plasm a chloride 101 mEq/L 96-108 Not Available [facility] (Outpatient) [address] [place], [address], 06/03/2015 17:42:12 06/03/2006/03/2015 CMP, serum or plasm a CO2 21 mEq/L 21-35 Not Available [facility] (Out[facility]) [address] [place] [address], [address], 06/03/2015 17:42:12 06/03/2006/03/2015 CMP, serum or plasm a calcium 8.4 mg/dL 8.4-10 .3 Not Available [facility] ([facility]) [address] [place] [address], [address], 06/03/2015 17:42:12 06/03/2006/03/2015 CMP, serum or plasm a total bilirubin 0.8 mg/dL 0.0-1. 2 Not Available [facility] ([facility]) [address] [place], [address], 06/03/2015 17:42:12 06/03/2006/03/2015 CMP, serum or plasm a alkaline phosphatase 489 U/L 39-117 high Not Available [facility] (Outpatient) [address] [place], [address], 06/03/2015 17:42:12 06/03/2006/03/2015 CMP, serum or plasm a AST (SGOT) 378 U/L 0-37 high Not Available [facility] (Outpatient) [address] [place], [address], 06/03/2015 17:42:12 06/03/2006/03/2015 CMP, serum or plasm a ALT (SGPT) 202 U/L 0-40 high Not Available [facility] (Outpatient) [address] [place], [address], 06/03/2015 17:42:12 06/03/20 15 06/03/2015 CMP, serum or plasm a total protein 6.8 g/dL 6.5-8. 0 Not Available [facility] (Out[facility]) [address] [place] [address], [address], 06/03/2015 17:42:12 06/03/20 15 06/03/2015 CMP, serum or plasm a albumin 4.0 g/dL 3.9-4. 8 Not Available [facility] (Out[facility]) [address] [place] [address], 06[address], 06/03/2015 17:42:12 06/03/20 15 06/03/2015 CMP, serum or plasm a globulin 2.8 gm/dL 1.0-4. 8 Not Available [facility] (Outpatient) [address] [place] [address], [address], 06/03/2015 17:42:12 06/03/20 15 06/03/2015 CMP, serum or plasm a A/G ratio 1.4 gm/dL 1.0-4. 8 Not Available [facility] (Out[facility]) [address] [place] [address], [address], 06/03/2015 17:42:12 06/03/20 15 06/03/2015 CMP, serum or plasm a anion gap 18 mEq/L 10-20 Not Available [facility] ([facility]) [address] [place] [address], 08[address], 06/03/2015 17:42:12 06/03/20 15 06/03/2015 thyro id casca de, serum TSH 3.540 mU/L 0.270- 4.200 Not Available [facility] ([facility]) [address] [place] [address], [address], 06/03/2015 17:42:12 06/03/20 15 06/03/2015 vitam in B12, serum vitamin B12 541 pg/mL 243-89 4 Not Available [facility] ([facility]) [address] [place] [address], 6[address], 06/03/2015 18:37:11 09/28/19 16 09/28/2015 wet mount yeast cells None Seen none seen Not Available [facility] ([facility]) [address] [place], [address], 09/28/2015 19:46:05 09/28/19 16 09/28/2015 wet mount trichomonas N/A none seen Speci men is too old for relia ble resul ts. Not Available [facility] ([facility]) [address] [place], [address], 09/28/2015 19:46:05 09/28/19 16 09/28/2015 wet mount clue cells None Seen none seen Not Available [facility] ([facility]) [address] [place], [address], 09/28/2015 19:46:05 09/28/19 16 09/28/2015 cultu re, genit al, bacte rial culture genital Not Available [facility] ([facility]) [address] [place], [address], 09/30/2015 10:53:17 09/28/19 16 09/28/2015 cultu re, genit al, bacte rial stain, gram Rare Epithe lial cells seen - Few Gram positi ve rods - Few Gram negati ve rods Not Available [facility] (Outpatient) [address] [place], [address], 09/30/2015 10:53:17 09/28/19 16 09/28/2015 cultu re, genit al, bacte rial organism Yeast - Rare - with Normal Genita l Maureen Not Available [facility] (Outpatient) [address] [place] [address], [address], 09/30/2015 10:53:17 Result Notes None recorded. Problems Name Problem SNOMED Code Status Onset Date Resolution Date Notes Provider Name and Address Organization Details Recorded Time Deraminamen t of knee 58718789 Completed 07/09/2013 Not Available [facility] 3 02:03:50 Open wound of finger 537603006 Completed 200607/09/2013 Not Available [facility] 3 02:03:23 Colitis, enteritis and gastroente ritis presumed infectious 185339264 Completed 200307/09/2013 Not Available [facility] 3 02:03:03 Contusion of buttock 87123067 Completed 07/09/2013 Not Available [facility] 3 02:04:27 Migraine without aura 68566683 Active 2004 Not Available [facility] 3 03:11:38 Enthesopat hy of wrist AND/OR carpus 63381175 Completed 200207/09/2013 Not Available [facility] 3 02:03:35 Constipati on 02503397 Completed 200207/09/2013 Not Available [facility] 3 02:02:39 Osteoarthr itis of knee 605058377 Active 2007 Not Available [facility] 3 03:11:38 Multiple joint pain 78241316 Completed 200407/09/2013 Not Available [facility] 3 02:02:26 Neck pain 88485171 Completed 200407/09/2013 Not Available [facility] 3 02:00:35 Anxiety state 675351815 Active 2007 Not Available [facility] 3 03:11:38 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 Not Available [facility] 3 03:11:38 Sciatica 16631875 Active 2004 Not Available [facility] 3 03:11:38 Major depression , melancholi c type 977045902 Active Lamberto Joyce, [facility], [address] , [facility] 3 12:16:32 Localized, primary osteoarthr itis 921029584 Active 2007 Not Available [facility] 3 03:11:38 Lymphangit is 7075727 Completed 200507/09/2013 Not Available [facility] 3 02:04:29 Atopic dermatitis 04650201 Active Not Available [facility] 3 03:11:38 Congenital valgus deformity of foot 73091659 Active 2008 Not Available [facility] 3 03:11:38 Acute stress disorder 99792745 Completed 200507/09/2013 Not Available [facility] 3 02:02:48 Irregular periods 43598245 Completed 200207/09/2013 Not Available [facility] 3 02:02:19 Knee pain Completed 200307/09/2013 Not Available [facility] 3 02:00:41 Oligomenor sofia 88778352 Active 2008 Not Available [facility] 3 03:11:38 Acute maxillary sinusitis 69848967 Completed 200207/09/2013 Not Available [facility] 3 02:01:42 Generalize d abdominal pain 778843801 Completed 200307/09/2013 Not Available [facility] 3 02:02:05 Sprain of knee and leg Completed 200507/09/2013 Not Available [facility] 3 02:03:04 Acne 49930808 Active 2002 Not Available [facility] 3 03:11:38 Backache 471958758 Completed 200507/09/2013 Not Available [facility] 3 02:01:13 Amenorrhea 01125952 Active 2002 Not Available [facility] 3 03:11:38 Malaise and fatigue 998551167 Completed 200407/09/2013 Not Available [facility] 3 02:00:17 Thyrotoxic osis 29083897 Active 2005 Not Available [facility] 3 03:11:38 Disorder of upper respirator y system 525173018 Completed 200207/09/2013 Not Available [facility] 3 02:03:48 Right upper quadrant pain 451904085 Completed 200307/09/2013 Not Available [facility] 3 02:03:18 Tobacco user 856109823 Active 2004 Not Available [facility] 3 03:11:38 Insomnia 258858697 Active 2002 Not Available [facility] 3 03:11:38 Joint pain in ankle and foot Completed 07/09/2013 Not Available [facility] 3 02:01:25 Hemorrhage of rectum and anus 683518417 Completed 200207/09/2013 Not Available [facility] 3 02:03:16 Common cold 90755761 Completed 200307/09/2013 Not Available [facility] 3 02:00:27 Abdominal pain 10042026 Completed 200307/09/2013 Not Available [facility] 3 02:01:21 General symptom 847084738 Completed 200707/09/2013 Not Available [facility] 3 02:04:00 Low back pain 192704381 Active 2002 Not Available [facility] 3 03:11:38 Migraine 06954813 Active 2007 Not Available [facility] 3 03:11:38 Primary fibromyalg ia syndrome 88044206 Active 2006 Not Available [facility] 3 03:11:38 Full thickness burn of hand 5038404 Active AKHIL Renteria [address] [place] [address], [phone] , [facility] 3 16:54:35 Problem Notes None recorded. Procedures Surgical History Date Name Laterality Status Provider Name and Address Organization Details Recorded Time 02/26/20 13 Wound Care completed AKHIL Renteria [address] [place] [address], [phone], [facility] 02/25/2013 18:19:41 02/22/20 13 Wound Care completed Karyna Marinelli LPN [facility] 02/21/2013 16:07:55 03/21/20 12 Smoking cessation counseling completed Karyna Phillips LPN [facility] 03/21/2012 11:08:09 02/14/20 12 Smoking cessation counseling completed Ever Singletary [facility] 02/14/2012 10:24:59 11/06/19 10 Knee (Right) Injection completed Juan Melgar [facility] 11/05/2009 13:57:17 04/16/20 09 Corticosteroid Injection completed Justin Boudreaux III, MD [address] [place] [address], [phone], [facility] 04/16/2009 17:09:28 04/16/20 09 Aspiration Major Joint/Bursa completed Justin Boudreaux III, MD [address] [place] [address], [phone], [facility] 04/16/2009 17:09:28 Imaging Results None recorded. Procedure Notes None recorded. Medical Equipment None Reported. Allergies Allergen ID Allergen Name Allergen Category Reaction Reaction Severity Criticality Documentation Date Start Date Code Code System Note Provider Name and Address Organization Details Recorded Time 2977 Substance with sulfonami de structure and antibacte rial mechanism of action (substanc e) medicatio n Not available Not available Not available 10/07/2008 76373 8003 SNOMED swell ing, SOB Not Available [facility] 1 06:05:20 2978 Bactrim medicatio n Not available Not available Not available 10/07/2008 67089 9 RxNorm swell ing, SOB Not Available [facility] 1 06:05:20 Medications Name Sig Start Date Stop Date Status Note LastModified by Organization Details LastModified Time citalopram 40 mg tablet Take 1 tablet every day by oral route for 30 days. active Not Available Not Available No t Available azithromyc in 250 mg tablet Take 2 tablets (500 mg) by oral route once daily for 1 day then 1 tablet (250 mg) by oral route once daily for 4 days 2010 active Not Available Not Available Not Avai lable penicillin V potassium 500 mg tablet Take 1 tablet 4 times a day by oral route for 14 days. 01/07 completed Not Available Not Available Not Available Biaxin 500 mg tablet Take 1 tablet every 12 hours by oral route for 10 days. 12/06 completed Not Available Not Available Not Available morphine ER 30 mg tablet,ext ended release Take 1 tablet twice a day by oral route for 28 days. active Not Available Not Available No t Available tramadol 50 mg tablet Take 1 tablet 5 times a day by oral route in place of Percocet . 2009 active Not Available Not Available Not Avai lable triamcinol one acetonide 0.1 % topical cream Apply a thin film to the affected skin areas by topical route 2 timesper day as needed 2008 active Not Available Not Available Not Avai lable oxycodone 15 mg tablet Take 1 tablet twice a day by oral route as needed for 28 days. 12/19 completed Not Available Not Available Not Available MS Contin 15 mg tablet,ext ended release First two weeks: take one tablet twice a day. Last two weeks: take one tablet daily 2010 active Not Available Not Available Not Avai lable oxycodone- acetaminop hen 5 mg-325 mg tablet active Not Available Not Available Not Available alprazolam 0.5 mg tablet 01/06 completed Take 1.00 tabs 3 times daily as needed Not Available Not Available Not Available citalopram 20 mg tablet Take 3 tablets every day by oral route for 90 days. 2010 active Not Available Not Available Not Avai lable Percocet 10 mg-325 mg tablet 2 tablet PO TID prn 2009 active Not Available Not Available Not Avai lable morphine 30 mg immediate release tablet Take 1 tablet every 4 hours by oral route as needed. 08/18 completed Not Available Not Available Not Available fluoxetine 20 mg tablet Take 1 tablet every day by oral route. 09/10 completed Not Available Not Available Not Available MS Contin 60 mg tablet,ext ended release Take 1 tablet every 12 hours by oral route for 28 days. 12/19 completed Not Available Not Available Not Available oxycodone 5 mg capsule First week: take 2 tablets twice a day. Second week: take 2 tablets in the morning and 1 tablet in the afternoo n. Third week: take 1 tablet twice a day. Forth week: take 1 tablet twice a day. 2010 active Not Available Not Available Not Avai lable diclofenac sodium 75 mg tablet,del ayed release Take 1 tablet twice a day by oral route for 10 days. 03/25 completed Not Available Not Available Not Available diclofenac sodium 50 mg tablet,del ayed release Take 1 tablet 3 times a day by oral route for 30 days. 03/08 completed Not Available Not Available Not Available gabapentin 100 mg capsule Take 2 capsules 3 times a day by oral route for 30 days. 2011 active Not Available Not Available Not Avai lable SSD 1 % topical cream apply a thin layer to the affected area once or twice a day as directed . active Not Available Not Available No t Available risperidon e 1 mg tablet TAKE 2 TABLETS BY MOUTH EVERY DAY active Not Available Not Available No t Available oxycodone 5 mg tablet Take 1 tablet every 6 hours by oral route for 6 days. 03/03 completed 6 days - for pitts. Not Available Not Available Not Available Prilosec OTC 20 mg tablet,del ayed release Take 1 tablet every day by oral route. 2009 active prn Not Available Not Available Not Avai lable multivitam in active Not Available Not Available Not Available Chantix Starting Month Baltazar 0.5 mg (11)-1 mg (42) tablets in dose pack Take 1 tablet twice a day by oral route. 2010 active Not Available Not Available Not Avai lable Chantix 0.5 mg tablet take 1 tablet daily for 3 days then 1 tablet twice daily for 4 days then 2 tabs twice daily. 2011 active Not Available Not Available Not Avai lable Abilify 2 mg tablet TAKE 2 TABLETS BY MOUTH EVERY DAY 2012 active Not Available Not Available Not Avai lable Fish Oil 1,000 mg capsule active Not Available Not Available Not Available Chantix Continuing Month Baltazar 1 mg tablet Take 1 tablet twice a day by oral route. 2010 active Not Available Not Available Not Avai lable oxycodone 10 mg tablet Take 1 tablet twice a day by oral route for 28 days. active Not Available Not Available No t Available ketorolac 30 mg/mL injection solution active Not Available Not Available Not Available Bioflex 500 mg-50 mg-25 mg-40 mg tablet 1 daily active Not Available Not Available Not Available Vitals Date Recorded Body height Body weight Body mass index (BMI) Heart rate Systolic blood pressure Diastolic blood pressure Provider Name and Address Organization Details Last Updated DateTime 3 157.48 cm 39479.0 44488 g 28.8 kg/m2 106 /min 122 mm[Hg] 82 mm[Hg] Brittni Rutledge [facility] 3 12:42:21 Date Recorded Body height Provider Name an d Address Organization Details Last Updated DateTime 02/21/2013 157.48 cm Maria D White MA [facility] 02/21/2013 15:19:59 Date Recorded Body weight Body mass index (BMI) Heart rate Systolic blood pressure Diastolic blood pressure Provider Name and Address Organization Details Last Updated DateTime 02/21/2013 25136.00 209 g 28.7 kg/m2 68 /min 138 mm[Hg] 86 mm[Hg] Maria D White MA [facility] 3 15:25:58 Date Recorded Body height Body weight Body mass index (BMI) Heart rate Systolic blood pressure Diastolic blood pressure Provider Name and Address Organization Details Last Updated DateTime 3 157.48 cm 56582.1 1654 g 26 kg/m2 68 /min 148 mm[Hg] 102 mm[Hg] Maria D White MA [facility] 3 08:43:51 Date Recorded Body height Body weight Body mass index (BMI) Provider Name and Address Organization Details Last Updated DateTime 05/07/2013 157.48 cm 21837.89757 2 g 25.8 kg/m2 Maria D White MA [facility] 05/07/2013 14:49:02 Date Recorded Heart rate Systolic blood pressure Diastolic blood pressure Provider Name and Address Organization Details Last Updated DateTime 05/07/2013 88 /min 120 mm[Hg] 80 mm[Hg] FLAVIO Rose [facility] 05/07/2013 15:21:04 Date Recorded Body height Body weight Body mass index (BMI) Heart rate Systolic blood pressure Diastolic blood pressure Provider Name and Address Organization Details Last Updated DateTime 3 157.48 cm 24686.6 76751 g 27.3 kg/m2 88 /min 118 mm[Hg] 76 mm[Hg] Maria D White MA [facility] 3 11:16:17 Social History Question Answer Notes LastModified by Organizat ion Details LastModified Time Tobacco Smoking Status Current Every Day Smoker 6 cigarettes per day Not Available [facility] 01/12/2011 02:07:41 CSRP - Narcotics No 07/11/13-on Hold Per TK Needs OV [email or web address] Information not available 07/11/2013 CSRP Contract Signed And Discussed Yes 03/21/2012 [email or web address] Information not available 03/21/2012 Sex: Unknown Functional Status None recorded. Mental Status None recorded. Family History Relationship Description Onset Age of this Age Resolved Age Notes LastModified by Organization Details LastModified Time Mother Malignant tumor of breast 52 recurr ence at 54 (previ ously record ed as Cancer -Breas t) [email or web address] [id number] Not available 03/31/2013 03:00:37 Mother Malignant neoplastic disease thyroi d (previ ously record ed as Cancer ) [email or web address] [id number] Not available 03/31/2013 03:00:37 Paternal Grandfather Malignant tumor of lung previo usly record ed as Cancer - Lung [email or web address] [id number] Not available 03/31/2013 03:00:37 Maternal Grandfather Malignant tumor of lung previo usly record ed as Cancer - Lung [email or web address] [id number] Not available 03/31/2013 03:00:37 Medical History No medical history recorded. Gynecological HistoryNo gynecological history recorded. Obstetrics History GPAL:G 0 P 0 0 0 0 Immunizations Vaccine Type Date Status Note Provider Nam e and Address Organization Details Recorded Time Tdap 7 completed Not Available [facility] 07/05/2011 05:21:55 Influenza, split virus, trivalent, preservative 2 completed Not Available [facility] 09/06/2019 02:36:25 Influenza, split virus, trivalent, PF 3 completed Not Available [facility] 09/06/2019 02:38:48 Influenza, split virus, trivalent, preservative 1 completed Not Available [facility] 09/06/2019 02:38:01 Past Encounters Encounter ID Performer Location Encounter Start Date Encounter Closed Date Diagnosis/Indication Diagnosis SNOMED-CT Code Diagnosis ICD10 Code Diagnosis Note [id number] LAB - [facility] [place] [address] 06/03/2002 14:39:26 09/09/2008 02:02:[id number] [place] [address] 11/26/2002 15:09:59 09/09/2008 02:02:29 [id number] [facility], OFFICE [address] [place] [address] 01/16/2003 16:48:40 09/09/2008 02:02:29 [id number] [facility], OFFICE [address] [place] [address] 01/26/2003 09:29:01 09/09/2008 02:02:29 [id number] [facility], OFFICE [address] [place] [address] 02/17/2003 11:52:58 09/09/2008 02:02:29 [id number] [facility], OFFICE [address] [place] [address] 03/02/2003 16:35:09 09/09/2008 02:02:29 [id number] LAB - [address] [address] 03/02/2003 00:00:00 09/09/2008 02:02:29 [id number] LAB - [address] [address] 03/04/2003 09:04:42 09/09/2008 02:02:[id number] [address] 05/01/2003 15:14:55 09/09/2008 02:02:29 [id number] Optical, [address] [address] 06/25/2003 10:18:55 06/25/2003 16:51:[id number] [facility], OFFICE [address] [place] [address] 08/04/2003 13:36:31 08/05/2003 15:55:[id number] [address] 09/03/2003 10:18:38 09/09/2008 02:02:29 [id number] Radiology , [address] [address] 10/13/2003 13:53:02 10/13/2003 13:53:22 [id number] FP [facility], OFFICE 70 [facility] [place] [address] 01/25/2004 13:10:19 01/25/2004 16:08:08 [id number] FP, [facility], OFFICE 70 [place] [address] 6 07/13/2004 16:37:41 07/16/2004 12:00:40 [id number] FP, [facility], OFFICE 70 [place] [address] 6 07/17/2004 10:38:29 07/18/2004 10:07:54 [id number] LAB - [facility] 70 [place] [address] 07/15/2004 14:31:48 07/15/2004 14:32:04 [id number] FP, [facility], [facility]OP [address] [place] [address] 07/17/2004 00:00:00 09/09/2008 02:02:29 [id number] FP, [facility], OFFICE 70 [place] [address] 6 07/21/2004 13:38:34 07/21/2004 17:43:02 [id number] FP, [facility], CDH-IP 30 [place] [address] 07/18/2004 00:00:00 09/09/2008 02:02:29 [id number] LAB - [facility] 70 [place] [address] 6 08/31/2004 08:44:43 08/31/2004 08:44:59 [id number] FP, [facility], OFFICE 70 [place] [address] 6 09/10/2004 13:21:39 09/12/2004 09:40:39 [id number] FP, [facility], OFFICE 70 [place] [address] 6 10/28/2004 08:56:48 10/28/2004 15:55:06 [id number] FP, [facility], OFFICE [address] [place] [address] 6 12/07/2004 15:37:41 09/09/2008 02:02:29 [id number] FP, [facility], OFFICE [address] [place] [address] 12/21/2004 14:01:32 12/21/2004 17:45:50 [id number] [facility], OFFICE 70 [place] TA62[address] 6 02/16/2005 09:48:42 02/16/2005 16:31:39 [id number] FP DEC, OFFICE [address] [place] [address] 06/21/2005 11:31:49 06/28/2005 16:16:21 [id number] FP DEC, OFFICE [address] [place] [address] 6 08/11/2005 11:50:17 09/09/2008 02:02:29 [id number] LAB - [facility] 70 [place]62[address] 6 08/11/2005 13:15:22 08/11/2005 13:15:55 [id number] [facility], OFFICE [address] [place] [address] 10/17/2005 09:49:49 10/17/2005 10:49:30 [id number] [facility] DEC, OFFICE [address] [place] [address] 12/07/2005 10:07:40 12/08/2005 08:57:30 [id number] GUNNER [facility], OFFICE [address] [place] [address] 6 01/18/2006 11:41:05 09/09/2008 02:02:29 [id number] GUNNER [facility], OFFICE [address] [place] [address] 02/02/2006 11:00:10 02/02/2006 17:02:56 [id number] FP DEC, OFFICE [address] [place] [address] 02/14/2006 08:39:06 02/14/2006 14:29:25 [id number] FP, DEC, OFFICE [address] [place] [address] 03/05/2006 17:04:18 09/09/2008 02:02:29 [id number] FP, DEC, OFFICE [address] [place] [address] 03/19/2006 14:59:27 09/09/2008 02:02:29 [id number] LAB - [facility] [address] [place] [address] 03/20/2006 12:57:35 03/20/2006 12:57:51 [id number] , [facility], OFFICE 70 [place] [address] 03/20/2006 11:38:33 03/21/2006 12:17:01 [id number] , [facility], OFFICE 70 [place] [address] 03/22/2006 10:24:28 03/22/2006 13:03:43 [id number] , [facility], OFFICE 70 [place] [address] 03/26/2006 11:45:56 03/26/2006 13:12:55 [id number] , [facility], OFFICE 70 [place] [address] 05/03/2006 13:46:02 05/04/2006 08:43:45 [id number] Physical Therapy, [facility] 70 [facility] [place] [address] 05/04/2006 13:24:17 09/09/2008 02:02:29 [id number] Radiology , [facility] 70 [facility] [place] [address] 6 05/05/2006 15:21:09 09/09/2008 02:02:29 [id number] Physical Therapy, [facility] 70 [facility] [place] [address] 05/07/2006 11:58:24 09/09/2008 02:02:29 [id number] Physical Therapy, [facility] 70 [place] [address] 05/11/2006 12:52:08 09/09/2008 02:02:29 [id number] FP [facility], OFFICE [address] [place] [address] 1 06/26/2006 09:07:05 06/27/2006 08:19:42 [id number] , [facility], OFFICE [address] [place] [address] 6 07/21/2006 13:57:43 07/22/2006 09:54:25 [id number] GUNNER [facility], OFFICE [address] [place] [address] 09/13/2006 13:48:24 09/13/2006 14:30:34 [id number] FP [facility], OFFICE [address] [place] [address] 1 09/18/2006 14:34:44 09/19/2006 11:33:35 [id number] FP [facility], OFFICE [address] [place] [address] 10/08/2006 14:17:55 10/09/2006 08:10:47 [id number] [facility], OFFICE [address] [place], [place] [address] 10/12/2006 11:28:52 10/15/2006 07:52:17 [id number] [facility], OFFICE [address] [place], [place] [address] 1 02/08/2007 16:34:52 02/11/2007 07:44:02 [id number] [facility], OFFICE [address] [place], [place] [address] 1 02/13/2007 13:48:59 02/14/2007 08:17:10 [id number] [facility], OFFICE [address] [place], [place] [address] 1 05/16/2007 08:28:43 09/09/2008 02:02:29 [id number] [facility], OFFICE [address] [place], [place] [address] 1 05/15/2007 09:16:52 05/20/2007 08:35:05 [id number] [facility], OFFICE [address] [place], [place] [address] 1 05/15/2007 00:00:00 09/09/2008 02:02:29 [id number] [facility], OFFICE [address] [place], [place] [address] 1 05/20/2007 16:35:06 06/19/2007 09:33:44 [id number] [facility], OFFICE [address] [place] [address] 1 09/16/2007 10:26:24 09/09/2008 02:02:29 [id number] [facility] , [facility] [address] [place] [address] 09/16/2007 13:35:44 09/16/2007 14:59:21 [id number] [facility] [address] [place] [address] 09/16/2007 10:44:03 09/16/2007 10:44:21 [id number] [facility], OFFICE [address] [place]Xi [place] [address] 1 02/05/2008 16:52:44 09/09/2008 02:02:29 [id number] [facility], OFFICE [address] [place] [address] 1 04/10/2008 09:05:41 09/09/2008 02:02:29 [id number] GUNNER [facility] [place], [place] [address] 1 05/19/2008 14:07:44 09/09/2008 02:02:29 [id number] GUNNER [facility], [address] [place] [address] 1 10/07/2008 16:45:35 10/12/2008 12:22:32 [id number] GUNNER [facility], OFFICE [address] [place] [address] [place] [address] 1 11/20/2008 14:55:53 11/24/2008 13:44:27 [id number] GUNNER [facility], [address] [place] [address] 1 12/11/2008 08:55:59 12/14/2008 09:18:44 [id number] GUNNER [facility], [address] [place] [address] 1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
== END 2024-09-10 10:24 | disposition home or self-care (01) ==
PROVIDERS: PCP Internal Medicine
DX: F32.A Depression, unspecified (principal); Z72.0 Tobacco use; F41.9 Anxiety disorder, unspecified; F10.10 Alcohol abuse, uncomplicated; R41.840 Attention and concentration deficit; R03.0 Elevated blood-pressure reading, without diagnosis of hypertension; J30.2 Other seasonal allergic rhinitis; Z12.39 Encounter for other screening for malignant neoplasm of breast; Z12.4 Encounter for screening for malignant neoplasm of cervix

== ENCOUNTER → 2024-09-10 09:08 | Outpatient (BNVA) | payer OTHER, SELFPAY | PROVIDERS: PCP Internal Medicine | DX: F32.A Depression, unspecified (principal); F41.9 Anxiety disorder, unspecified; F10.10 Alcohol abuse, uncomplicated; R41.840 Attention and concentration deficit; R03.0 Elevated blood-pressure reading, without diagnosis of hypertension; J30.2 Other seasonal allergic rhinitis; Z72.0 Tobacco use | CPT/HCPCS: 96127; 99202 ==

== ENCOUNTER → 2024-10-03 15:45 | Outpatient (BNV) | payer OTHER, SELFPAY | PROVIDERS: PCP Internal Medicine; Visit Provider Internal Medicine | DX: Z12.31 Encounter for screening mammogram for malignant neoplasm of breast (principal) | CPT/HCPCS: 77063; 77067 ==

== ENCOUNTER 2024-10-03 15:56 | Outpatient (REF) | payer OTHER, SELFPAY ==
--- OUTSIDE RECORDS SUMMARY | 2024-10-03 15:58 | XMS_ITS | Encounter Summary ---
Author Organization [employer] Address [address] [place] [address] [address] [place] [address] Care Team Providers Care Criminal Justice Professor Name Role Phone Unavailable Primary Care Provider Unavailabl e Encounter Details Date Type Department Care Team (Late st Contact Info) Description 09/05/2023 Abstract [facility] [address] [place] [address] Gladys Greenwood BDS Social History Tobacco Use [...]
--- OUTSIDE RECORDS SUMMARY | 2024-10-03 15:58 | XMS_ITS | Clinical Summary ---
Author Organization [employer] [facility] Address [address] [place] [address] [place] [address] Care Team Providers Care Cleaner Name Role Phone Unavailable Primary Care Provider [...] Panel 1978 SDOH Screening 1978 Sigmoidoscopy 1978 Alcohol/Substance Use Screening 1990 Family Planning (PISQ) 1993 Hepatitis C Screening 1996 Hepatitis B Vaccines (1 of 3 - 19+ 3-dose series) 1997 Pneumococcal Vaccine: Pediatrics (0 to 5 Years) and At-Risk Patients (6 to 49) Years) (1 of 2 - PCV) 1997 Pap Smear 1999 Cervical Cancer Screening [...] fective 2023-Present) Name:Karine Wilkerson Relation to Subscriber:Self Name:Rock Karine Anum Payer ID:Not on file Group ID:Not on file Type:Not on file Address: [place] [id number]
--- OUTSIDE RECORDS SUMMARY | 2024-10-03 15:58 | XMS_ITS | Data Portability ---
Author Organization [facility] Address [address] [place] [address] Care Team Providers Care Electro Winning Operator Name Role Phone GUANACO COSME Primary Care [...] AMOXYCODO NE @ 6:[address] [facility], [address] [place] [address], [address], 3 07:21:12 opiates, expanded by GC/ms urine [address] [facility], [address] [place] [address], [address], 3 22:10:00 drugs of abuse screen (6) - Drug Name/Date and Time last dose:Morp kyle 6am 02/06/2013 , Oxycodone 6 am 02/06/20132012 013 [facility], [address] [place] [address], [address], 3 04:16:55 opiates, expanded by GC/ms urine - Morphine 6am 02/06/2013 , Oxycodone 6 am 02/06/20132012 013 [facility], [address] [place], [address], 3 04:16:55 Referral orthopedi c referral - Current pt of yours, right knee injury, please send office notes. she will be schedulin g followup. 2012 013 [facility], [address] [place] [address] [place], [address], 3 07:58:54 Procedures None recorded. Surgeries None recorded. Imaging None recorded. Medication Orders citalopra m 40 mg tablet 2012 013 [id number], [address] [place], [address], 3 12:35:59 Abilify 2 mg tablet 2012 013 [facility] #[id number], [address] [place], [address], 3 13:56:46 morphine ER 30 mg tablet,ex tended release 2012 013 [facility], [address] [place], [address], 3 15:19:23 oxycodone 10 mg tablet 2012 [facility]13 [id number] [address] [place], [address], 3 15:19:23 oxycodone 5 mg tablet 2012 013 [facility], [address] [place], [address], 3 14:49:02 Silvadene 1 % topical cream 2012 013 [facility], [address] [place], [address], 3 14:49:02 oxycodone 10 mg tablet 2012 013 [facility], [address] [place], [address], 3 04:20:31 diclofena c sodium 50 mg tablet,de layed release 2012 013 [facility], [address] [place], [address], 3 14:49:02 Patient TargetsNo targets recorded. Patient Instructions Encounter Date Encounter Id Patient Instructions Last Modified By Organization Details Last Modified Time 02/06/2013 [id number] My Health To Do List Specific Analgesia [...] medication. [email or web address] Not available 02/06/2013 13:12:35 05/07/2013 [id number] My Health To Do List As we [...] medictation. [email or web address] Not available 05/07/2013 16:53:34 06/13/2013 [id number] 25 min visit and over 50% time [...] (6) amphetamine NEG. negati ve Not Available [address], [address], 02/07/2013 15:51:56 02/08/20 13 02/07/2013 drugs of abuse scree n (6) barbiturates NEG. negati ve Not Available [address], [address], 02/07/2013 15:51:56 02/08/20 13 02/07/2013 drugs of abuse scree n (6) benzodiazepi ne NEG. negati ve Not Available [address], [address], 02/07/2013 15:51:56 02/08/20 13 02/07/2013 drugs of abuse scree n (6) cocaine NEG. negati ve Not Available [address], [address], 02/07/2013 15:51:56 02/08/20 13 02/07/2013 drugs of abuse scree n (6) opiates POS. negati ve gcop= urine [facility] by GC/MS . Not Available [address], [address], 02/07/2013 15:51:56 02/08/20 13 02/07/2013 drugs of [...] NG/mL metha done: 300 NG/mL Not Available [address], [address], 02/07/2013 15:51:56 02/08/20 13 02/11/2013 opiat e confi rm GC morphine >30753 NG/mL high Not Available [facility] [address], [place], [address], 02/11/2013 06:01:32 02/08/20 13 02/11/2013 opiat e confi rm GC codeine NONE DETECT ED NG/mL normal Not Available [facility] [address], [place], [address], 02/11/2013 06:01:32 02/08/20 13 02/11/2013 opiat e confi rm GC hydrocodone NONE DETECT ED NG/mL normal Not Available [facility] [address], [place], [address], 02/11/2013 06:01:32 02/08/20 13 02/11/2013 opiat e confi rm GC hydromorphon e NONE DETECT ED NG/mL normal Not Available [facility] [address], [place], [address], 02/11/2013 06:01:32 02/08/20 13 02/11/2013 opiat e confi rm GC oxycodone 7100 NG/mL high Not Available [facility] [address], [place], [address], 02/11/2013 06:01:32 02/08/20 13 02/11/2013 opiat e confi rm GC Unknown Analyte this test was perfo rmed by GC/MS , 100 NG/mL cutof f. Not Available [facility] [address], [place], [address], 02/11/2013 06:01:32 05/07/20 13 05/09/2013 drugs of abuse scree n (6) amphetamine NEG. negati ve Not Available [facility] [address] [place], [address], 05/09/2013 07:21:12 05/07/20 13 05/09/2013 drugs of abuse scree n (6) barbiturates NEG. negati ve Not Available [facility] [address] [place], [address], 05/09/2013 07:21:12 05/07/20 13 05/09/2013 drugs of abuse scree n (6) benzodiazepi ne NEG. negati ve Not Available [address], [address], 05/09/2013 07:21:12 05/07/20 13 05/09/2013 drugs of abuse scree n (6) cocaine NEG. negati ve Not Available [address], [address], 05/09/2013 07:21:12 05/07/20 13 05/09/2013 drugs of abuse scree n (6) opiates POS. negati ve gcop= urine [facility]pl e [facility] es by GC/MS . Not Available [address], [address], 05/09/2013 07:21:12 05/07/20 13 05/09/2013 drugs of [...] NG/mL metha done: 300 NG/mL Not Available [address], [address], 05/09/2013 07:21:12 05/07/20 13 05/21/2013 opiat e confi rm GC morphine 995 NG/mL high Not Available [email or web address] [address], [address], 05/21/2013 22:10:00 05/07/20 13 05/21/2013 opiat e confi rm GC codeine NONE DETECT ED NG/mL normal Not Available [email or web address] [address], [address], 05/21/2013 22:10:00 05/07/20 13 05/21/2013 opiat e confi rm GC hydrocodone NONE DETECT ED NG/mL normal Not Available [facility] [address], [place], [address], 05/21/2013 22:10:00 05/07/20 13 05/21/2013 opiat e confi rm GC hydromorphon e NONE DETECT ED NG/mL normal Not Available [facility] [address], [place], [address], 05/21/2013 22:10:00 05/07/20 13 05/21/2013 opiat e confi rm GC oxycodone 1600 NG/mL high Not Available [facility] [address], [place], [address], 05/21/2013 22:10:00 05/07/20 13 05/21/2013 opiat e confi rm GC Unknown Analyte this test was perfo rmed by GC/MS , 100 NG/mL cutof f. Not Available [facility] [address], [place], [address], 05/21/2013 22:10:00 01/28/20 14 01/27/2014 CBC w/dif f WBC 6.9 K/uL 3.4-11 .2 Not Available [facility] [address] [place] [address], [address], 01/27/2014 14:51:40 01/28/20 14 01/27/2014 CBC w/dif f RBC 3.93 M/uL 3.80-4 .80 Not Available [facility] [address] [place] [address], [id number], 01/27/2014 14:51:40 01/28/20 14 01/27/2014 CBC w/dif f hemoglobin 13.7 g/dL 12.0-1 5.0 Not Available [facility] [address] [place], [address], 01/27/2014 14:51:40 01/28/20 14 01/27/2014 CBC w/dif f hematocrit 40.6 % 36.0-4 6.0 Not Available [facility] [address] [place] [address], [address], 01/27/2014 14:51:40 01/28/20 14 01/27/2014 CBC w/dif f MCV 103.3 fL 79.0-9 8.0 high Not Available [facility] [address] [place] [address], [id number], 01/27/2014 14:51:40 01/28/20 14 01/27/2014 CBC w/dif f MCH 34.9 pg 27.0-3 4.8 high Not Available [facility] [address] [place] [address], [address], 01/27/2014 14:51:40 01/28/20 14 01/27/2014 CBC w/dif f MCHC 33.7 g/dL 31.5-3 6.0 Not Available [facility] [address] [place] [address], [address], 01/27/2014 14:51:40 01/28/20 14 01/27/2014 CBC w/dif f RDW 15.5 % 10.8-1 4.6 high Not Available [facility] [address] [place] [address], [id number], 01/27/2014 14:51:40 01/28/20 14 01/27/2014 CBC w/dif f MPV 10.1 fL 7.2-10 .5 Not Available [facility] [address] [place] [address], [id number], 01/27/2014 14:51:40 01/28/20 14 01/27/2014 CBC w/dif f platelet count 267 K/uL 130-40 0 Not Available [facility] [address] [place] [address], [address], 01/27/2014 14:51:40 01/28/20 14 01/27/2014 CBC w/dif f neutrophils 72.5 % 45.3-7 7.7 Not Available [facility] [address] [place] [address], [id number], 01/27/2014 14:51:40 01/28/20 14 01/27/2014 CBC w/dif f lymphocytes 20.1 % 12.3-3 9.7 Not Available [facility] [address] [place] [address], [id number], 01/27/2014 14:51:40 01/28/20 14 01/27/2014 CBC w/dif f monocytes 6.7 % 4.1-12 .8 Not Available [facility] [address] [place] [address], [address], 01/27/2014 14:51:40 01/28/20 14 01/27/2014 CBC w/dif f eosinophils 0.40 % 0.00-7 .20 Not Available [facility] [address] [place] [address], [address], 01/27/2014 14:51:40 01/28/20 14 01/27/2014 CBC w/dif f basophils 0.00 % 0.00-2 .80 Not Available [facility] [address] [place] [address], [id number], 01/27/2014 14:51:40 01/28/20 14 01/27/2014 CBC w/dif f absolute neutrophil 5.0 K/uL 1.4-7. 7 Not Available [facility] [address] [place] [address], [id number], 01/27/2014 14:51:40 01/28/20 14 01/27/2014 CBC w/dif f absolute lymphocyte 1.4 K/uL 0.6-3. 2 Not Available [facility] [address] [place], [address], 01/27/2014 14:51:40 01/28/20 14 01/27/2014 CBC w/dif f absolute monocytes 0.5 K/uL 0.1-0. 6 Not Available [facility] [address] [place], [address], 01/27/2014 14:51:40 01/28/20 14 01/27/2014 CBC w/dif f absolute eosinophil 0.03 K/uL 0.01-0 .50 Not Available [facility] [address] [place] [address], [id number], 01/27/2014 14:51:40 01/28/20 14 01/27/2014 CBC w/dif f absolute basophils 0.00 K/uL Not Available [facility] [address] [place] [address], [id number], 01/27/2014 14:51:40 01/28/20 14 01/27/2014 CBC w/dif f immature granulocyte 0.30 % 0.00-0 .50 Not Available [facility] [address] [place] [address], [id number], 01/27/2014 14:51:40 01/28/20 14 01/27/2014 CBC w/dif f absolute immature granulocyte 0.02 K/uL 0.00-0 .03 Not Available [facility] [address] [place] [address], [id number], 01/27/2014 14:51:40 01/28/20 14 01/27/2014 lipid panel cholesterol 267 mg/dL 0-240 high Not Available [facility] [address] [place], [address], 01/27/2014 16:53:35 01/28/20 14 01/27/2014 lipid panel triglyceride s 98 mg/dL 30-160 Not Available [facility] [address] [place], [address], 01/27/2014 16:53:35 01/28/20 14 01/27/2014 lipid panel HDL cholesterol 124 mg/dL inter preta tion: risk level femal es decre ased >55mg /dL avera ge 50-55 mg/dL incre ased <50 mg/dL Not Available [facility] [address] [place] [address], [id number], 01/27/2014 16:53:35 01/28/20 14 01/27/2014 lipid panel LDL cholesterol 123 mg/dL inter preta tion: axel able level : <130 borde agnesine high: 130 - 159 high level : >160 Not Available [facility] [address] [place] [address], [id number], 01/27/2014 16:53:35 01/28/20 14 01/27/2014 lipid panel chol/HDL risk fact 2.15 3.27-4 .44 low Not Available [facility] [address] [place] [address], [address], 01/27/2014 16:53:35 01/28/20 14 01/27/2014 compr ehens yogesh metab olic panel glucose 114 mg/dL 70-99 high Not Available [facility] [address] [place] [address], [address], 01/27/2014 16:53:35 01/28/20 14 01/27/2014 compr ehens yogesh metab olic panel BUN 6 mg/dL 6-19 Not Available [facility] [address] [place] [address], [id number], 01/27/2014 16:53:35 01/28/20 14 01/27/2014 compr ehens yogesh metab olic panel creatinine 0.6 mg/dL 0.5-1. 5 Not Available [facility] [address] [place], [address], 01/27/2014 16:53:35 01/28/20 14 01/27/2014 compr ehens yogesh metab olic panel GFR >60 Not Available [facility] [address] [place], [address], 01/27/2014 16:53:35 01/28/20 14 01/27/2014 compr ehens yogesh metab olic panel sodium 141 mEq/L 133-14 5 Not Available [facility] [address] [place], [address], 01/27/2014 16:53:35 01/28/20 14 01/27/2014 compr ehens yogesh metab olic panel potassium 4.1 mEq/L 3.3-5. 1 Not Available [facility] [address] [place], [address], 01/27/2014 16:53:35 01/28/20 14 01/27/2014 compr ehens yogesh metab olic panel chloride 104 mEq/L 96-108 Not Available [facility] [address] [place], [address], 01/27/2014 16:53:35 01/28/20 14 01/27/2014 compr ehens yogesh metab olic panel CO2 27 mEq/L 21-35 Not Available [facility] [address] [place], [address], 01/27/2014 16:53:35 01/28/20 14 01/27/2014 compr ehens yogesh metab olic panel calcium 8.2 mg/dL 8.4-10 .3 low Not Available [facility] [address] [place], [address], 01/27/2014 16:53:35 01/28/20 14 01/27/2014 compr ehens yogesh metab olic panel total bilirubin 0.5 mg/dL 0.0-1. 5 Not Available [facility] [address] [place], [address], 01/27/2014 16:53:35 01/28/20 14 01/27/2014 compr ehens yogesh metab olic panel alkaline phosphatase 226 U/L 39-117 high Not Available [facility] [address] [place], [address], 01/27/2014 16:53:35 01/28/20 14 01/27/2014 compr ehens yogesh metab olic panel AST (SGOT) 64 U/L 0-37 high Not Available [facility] [address] [place], [address], 01/27/2014 16:53:35 01/28/20 14 01/27/2014 compr ehens yogesh metab olic panel ALT (SGPT) 39 U/L 0-40 Not Available [facility] [address] [place], [address], 01/27/2014 16:53:35 01/28/20 14 01/27/2014 compr ehens yogesh metab olic panel total protein 6.0 g/dL 6.5-8. 0 low Not Available [facility] [address] [place], [address], 01/27/2014 16:53:35 01/28/20 14 01/27/2014 compr ehens yogesh metab olic panel albumin 3.7 g/dL 3.9-4. 8 low Not Available [facility] [address] [place] [address], [id number], 01/27/2014 16:53:35 01/28/20 14 01/27/2014 compr ehens yogesh metab olic panel globulin 2.3 gm/dL 1.0-4. 8 Not Available [facility] [address] [place], [address], 01/27/2014 16:53:35 01/28/20 14 01/27/2014 compr ehens yogesh metab olic panel A/G ratio 1.6 gm/dL 1.0-4. 8 Not Available [facility] [address] [place], [address], 01/27/2014 16:53:35 01/28/20 14 01/27/2014 compr ehens yogesh metab olic panel anion gap 14 mEq/L 10-20 Not Available [facility] [address] [place], [address], 01/27/2014 16:53:35 01/28/20 14 01/27/2014 thyro id stimu latin g hormo ne (TSH) TSH 1.420 mU/L 0.270- 4.20 Not Available [facility] [address] [place], [address], 01/27/2014 16:53:36 02/25/20 14 02/24/2014 hepat ic funct ion panel alkaline phosphatase 328 U/L 39-117 high Not Available [facility] [address] [place], [address], 02/24/2014 16:23:30 02/25/20 14 02/24/2014 hepat ic funct ion panel total bilirubin 0.4 mg/dL 0.0-1. 5 Not Available [facility] [address] [place], [address], 02/24/2014 16:23:30 02/25/20 14 02/24/2014 hepat ic funct ion panel bilirubin direct <0.2 mg/dL 0.0-0. 3 Not Available [facility] [address] [place], [address], 02/24/2014 16:23:30 02/25/20 14 02/24/2014 hepat ic funct ion panel bilirubin indirect see below mg/dL not able to calcu late. Not Available [facility] [address] [place], [address], 02/24/2014 16:23:30 02/25/20 14 02/24/2014 hepat ic funct ion panel AST (SGOT) 125 U/L 0-37 high Not Available [facility] [address] [place], [address], 02/24/2014 16:23:30 02/25/20 14 02/24/2014 hepat ic funct ion panel ALT (SGPT) 49 U/L 0-40 high Not Available [facility] [address] [place], [address], 02/24/2014 16:23:30 02/25/20 14 02/24/2014 hepat ic funct ion panel total protein 6.2 g/dL 6.5-8. 0 low Not Available [facility] [address] [place], [address], 02/24/2014 16:23:30 02/25/20 14 02/24/2014 hepat ic funct ion panel albumin 3.9 g/dL 3.9-4. 8 Not Available [facility] [address] [place], [address], 02/24/2014 16:23:30 02/25/20 14 02/24/2014 hepat ic funct ion panel globulin 2.3 gm/dL 1.0-4. 8 Not Available [facility] [address] [place], [address], 02/24/2014 16:23:30 02/25/20 14 02/24/2014 hepat ic funct ion panel A/G ratio 1.7 gm/dL 1.0-4. 8 Not Available [facility] [address] [place], [address], 02/24/2014 16:23:30 02/25/20 14 02/25/2014 hepat itis B surfa ce Ab hep B surface Ab Negati ve abnormal unvac cinat ed: negat yogesh vacci nated : posit yoegsh Not Available [facility] [address] [place] [address], [id number], 02/25/2014 13:43:42 02/25/20 14 02/25/2014 hepat itis C Ab HCV Ab screen,serum Negati ve negati ve Not Available [facility] [address] [place] [address], [id number], 02/25/2014 13:43:43 02/25/20 14 02/25/2014 hepat itis A Ab w/ igm refle x hepatitis A total see below negati ve negat yogesh Not Available [facility] [address] [place] [address], [id number], 02/25/2014 13:43:43 06/03/20 15 06/03/2015 CBC w/ auto diff WBC 8.6 K/uL 3.4-11 .2 Not Available [facility] [address] [place] [address], [id number], 06/03/2015 16:11:11 06/03/20 15 06/03/2015 CBC w/ auto diff RBC 4.24 M/uL 3.80-4 .80 Not Available [facility] [address] [place] [address], [address], 06/03/2015 16:11:11 06/03/20 15 06/03/2015 CBC w/ auto diff hemoglobin 15.4 g/dL 12.0-1 5.0 high Not Available [facility] [address] [place] [address], [id number], 06/03/2015 16:11:11 06/03/20 15 06/03/2015 CBC w/ auto diff hematocrit 44.8 % 36.0-4 6.0 Not Available [facility] [address] [place] [address], [id number], 06/03/2015 16:11:11 06/03/20 15 06/03/2015 CBC w/ auto diff MCV 105.7 fL 79.0-9 8.0 high Not Available [facility] [address] [place] [address], [address], 06/03/2015 16:11:11 06/03/20 15 06/03/2015 CBC w/ auto diff MCH 36.3 pg 27.0-3 4.8 high Not Available [facility] [address] [place] [address], [address], 06/03/2015 16:11:11 06/03/20 15 06/03/2015 CBC w/ auto diff MCHC 34.4 g/dL 31.5-3 6.0 Not Available [facility] [address] [place] [address], [id number], 06/03/2015 16:11:11 06/03/20 15 06/03/2015 CBC w/ auto diff RDW 15.3 % 10.8-1 4.6 high Not Available [facility] [address] [place] [address], [id number], 06/03/2015 16:11:11 06/03/20 15 06/03/2015 CBC w/ auto diff MPV 10.5 fL 9.4-12 .4 Not Available [facility] [address] [place] [address], [id number], 06/03/2015 16:11:11 06/03/20 15 06/03/2015 CBC w/ auto diff platelet count 239 K/uL 130-40 0 Not Available [facility] [address] [place] [address], [id number], 06/03/2015 16:11:11 06/03/20 15 06/03/2015 CBC w/ auto diff neutrophils 73.4 % 45.3-7 7.7 Not Available [facility] [address] [place] [address], [id number], 06/03/2015 16:11:11 06/03/20 15 06/03/2015 CBC w/ auto diff lymphocytes 19.9 % 12.3-3 9.7 Not Available [facility] [address] [place] [address], [id number], 06/03/2015 16:11:11 06/03/20 15 06/03/2015 CBC w/ auto diff monocytes 6.2 % 4.1-12 .8 Not Available [facility] [address] [place] [address], [address], 06/03/2015 16:11:11 06/03/20 15 06/03/2015 CBC w/ auto diff eosinophils 0.30 % 0.00-7 .20 Not Available [facility] [address] [place] [address], [id number], 06/03/2015 16:11:11 06/03/20 15 06/03/2015 CBC w/ auto diff basophils 0.10 % 0.00-2 .80 Not Available [facility] [address] [place] [address], [id number], 06/03/2015 16:11:11 06/03/20 15 06/03/2015 CBC w/ auto diff absolute neutrophil 6.3 K/uL 1.4-7. 7 Not Available [facility] [address] [place] [address], [id number], 06/03/2015 16:11:11 06/03/20 15 06/03/2015 CBC w/ auto diff absolute lymphocyte 1.7 K/uL 0.6-3. 2 Not Available [facility] [address] [place], [address], 06/03/2015 16:11:11 06/03/20 15 06/03/2015 CBC w/ auto diff absolute monocytes 0.5 K/uL 0.1-0. 6 Not Available [facility] [address] [place], [address], 06/03/2015 16:11:11 06/03/20 15 06/03/2015 CBC w/ auto diff absolute eosinophil 0.03 K/uL 0.01-0 .50 Not Available [facility] [address] [place] [address], [id number], 06/03/2015 16:11:11 06/03/20 15 06/03/2015 CBC w/ auto diff absolute basophils 0.01 K/uL Not Available [facility] [address] [place] [address], [id number], 06/03/2015 16:11:11 06/03/20 15 06/03/2015 CBC w/ auto diff immature granulocyte 0.10 % 0.00-0 .50 Not Available [facility] [address] [place] [address], [id number], 06/03/2015 16:11:11 06/03/20 15 06/03/2015 CBC w/ auto diff absolute immature granulocyte 0.01 K/uL 0.00-0 .03 Not Available [facility] [address] [place] [address], [id number], 06/03/2015 16:11:11 06/03/2006/03/2015 vitam in D, 25-hy droxy , total , serum 25-hydroxy.D 10 NG/mL >=30 low Not Available [facility] [address] [place] [address], [id number], 06/03/2015 17:31:16 06/03/2006/03/2015 CMP, serum or plasm a glucose 170 mg/dL 70-99 high Not Available [facility] [address] [place] [address], [id number], 06/03/2015 17:42:12 06/03/2006/03/2015 CMP, serum or plasm a BUN 5 mg/dL 6-19 low Not Available [facility] [address] [place] [address], [id number], 06/03/2015 17:42:12 06/03/2006/03/2015 CMP, serum or plasm a creatinine 0.6 mg/dL 0.5-1. 5 Not Available [facility] [address] [place] [address], [id number], 06/03/2015 17:42:12 06/03/2006/03/2015 CMP, serum or plasm [...] ages of 16 and 68. Not Available [facility] [address] [place] [address], [id number], 06/03/2015 17:42:12 06/03/2006/03/2015 CMP, serum or plasm a sodium 136 mEq/L 133-14 5 Not Available [facility] [address] [place] [address], [id number], 06/03/2015 17:42:12 06/03/2006/03/2015 CMP, serum or plasm a potassium 3.8 mEq/L 3.3-5. 1 Not Available [facility] (Out[facility]) [address] [place] [address], [id number], 06/03/2015 17:42:12 06/03/2006/03/2015 CMP, serum or plasm a chloride 101 mEq/L 96-108 Not Available [facility] ([facility]patient) [address] [place], [address], 06/03/2015 17:42:12 06/03/2006/03/2015 CMP, serum or plasm a CO2 21 mEq/L 21-35 Not Available [facility] ([facility]) [address] [place], [address], 06/03/2015 17:42:12 06/03/2006/03/2015 CMP, serum or plasm a calcium 8.4 mg/dL 8.4-10 .3 Not Available [facility] (Out[facility]) [address] [place] [address], [id number], 06/03/2015 17:42:12 06/03/2006/03/2015 CMP, serum or plasm a total bilirubin 0.8 mg/dL 0.0-1. 2 Not Available [facility] ([facility]) [address] [place], [address], 06/03/2015 17:42:12 06/03/2006/03/2015 CMP, serum or plasm a alkaline phosphatase 489 U/L 39-117 high Not Available [facility] (Outpatient) [address] [place], [address], 06/03/2015 17:42:12 06/03/2006/03/2015 CMP, serum or plasm a AST (SGOT) 378 U/L 0-37 high Not Available [facility] (Out[facility]) [address] [place], [address], 06/03/2015 17:42:12 06/03/2006/03/2015 CMP, serum or plasm a ALT (SGPT) 202 U/L 0-40 high Not Available [facility] (Out[facility]) [address] [place], [address], 06/03/2015 17:42:12 06/03/2006/03/2015 CMP, serum or plasm a total protein 6.8 g/dL 6.5-8. 0 Not Available [facility] (Out[facility]) [address] [place] [address], [id number], 06/03/2015 17:42:12 06/03/2006/03/2015 CMP, serum or plasm a albumin 4.0 g/dL 3.9-4. 8 Not Available [facility] (Out[facility]) [address] [place] [address], [id number], 06/03/2015 17:42:12 06/03/2006/03/2015 CMP, serum or plasm a globulin 2.8 gm/dL 1.0-4. 8 Not Available [facility] (Out[facility]) [address] [place] [address], [id number], 06/03/2015 17:42:12 06/03/2006/03/2015 CMP, serum or plasm a A/G ratio 1.4 gm/dL 1.0-4. 8 Not Available [facility] ([facility]) [address] [place] [address], [id number], 06/03/2015 17:42:12 06/03/2006/03/2015 CMP, serum or plasm a anion gap 18 mEq/L 10-20 Not Available [facility]) [address] [place] [address], [address], 06/03/2015 17:42:12 06/03/2006/03/2015 thyro id casca de, serum TSH 3.540 mU/L 0.270- 4.200 Not Available [facility]) [address] [place] [address], [id number], 06/03/2015 17:42:12 06/03/2006/03/2015 vitam in B12, serum vitamin B12 541 pg/mL 243-89 4 Not Available [facility]) [address] [place] [address], [address], 06/03/2015 18:37:11 09/28/19 16 09/28/2015 wet mount yeast cells None Seen none seen Not Available [facility] [address] [place], [address], 09/28/2015 19:46:05 09/28/19 16 09/28/2015 wet mount trichomonas N/A none seen Speci men is too old for relia ble resul ts. Not Available [facility]) [address] [place], [address], 09/28/2015 19:46:05 09/28/19 16 09/28/2015 wet mount clue cells None Seen none seen Not Available [facility]) [address] [place], [address], 09/28/2015 19:46:05 09/28/19 16 09/28/2015 cultu re, genit al, bacte rial culture genital Not Available [facility]) [address] [place], [address], 09/30/2015 10:53:17 09/28/19 16 09/28/2015 cultu re, genit al, bacte rial stain, gram Rare Epithe lial cells seen - Few Gram positi ve rods - Few Gram negati ve rods Not Available [facility] (Out[facility]) [address] [place], [address], 09/30/2015 10:53:17 09/28/19 16 09/28/2015 cultu re, genit al, bacte rial organism Yeast - Rare - with Normal Genita l Maureen Not Available [facility]) [address] [place] [address], [id number], 09/30/2015 10:53:17 Result Notes None recorded. Problems Name Problem SNOMED Code Status Onset Date Resolution Date Notes Provider Name and Address Organization Details Recorded Time Angelamen t of knee 92633791 Completed 07/09/2013 Not Available [facility] 3 02:03:50 Open wound of finger 319563269 Completed 200607/09/2013 Not Available [facility] 3 02:03:23 Colitis, enteritis and gastroente ritis presumed infectious 310328253 Completed 200307/09/2013 Not Available [facility] 3 02:03:03 Contusion of buttock 21205706 Completed 07/09/2013 Not Available [facility] 3 02:04:27 Migraine without aura 73391082 Active 2004 Not Available [facility] 3 03:11:38 Enthesopat hy of wrist AND/OR carpus 08781152 Completed 200207/09/2013 Not Available [facility] 3 02:03:35 Constipati on 17636549 Completed 200207/09/2013 Not Available [facility] 3 02:02:39 Osteoarthr itis of knee 738408080 Active 2007 Not Available [facility]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
--- OUTSIDE RECORDS SUMMARY | 2024-10-03 15:58 | XMS_ITS | Encounter Summary ---
Author Organization [employer] Address [address] [place] [address] [address] [place] [address] Care Team Providers Care Labor Union Business Representative Name Role Phone Unavailable Primary Care Provider Unavailabl e Reason for Visit * Reason Onset Date Comments Prior Authorization 08/07/2023 Encounter Details Date Type Department Care Team ([facility] st Contact Info) Description 08/07/2023 Telephone [facility] [address] [place] [address] Gladys Greenwood BDS Prior Authorization Social History [...]
--- OUTSIDE RECORDS SUMMARY | 2024-10-03 15:58 | XMS_ITS | Encounter Summary ---
Author Organization [employer] Address [address] [place] [address] [address] [place] [address] Care Team Providers Care Operator And Truck Driver Name Role Phone Unavailable Primary Care Provider Unavailabl e Reason for Visit * Reason Onset Date Comments case back from lab 12/28/2023 Encounter Details Date Type Department Care Team ([facility] st Contact Info) Description 12/28/2023 Telephone [facility] [address] [place] [address] Gladys Greenwood BDS case back from lab [...]
== END 2024-10-03 15:57 | disposition home or self-care (01) ==
LOC: HO.MAMMO 15:56
PROVIDERS: PCP Internal Medicine
DX: Z12.31 Encounter for screening mammogram for malignant neoplasm of breast (principal)
CPT/HCPCS: 77063; 77067

== ENCOUNTER 2024-11-12 12:11 | Outpatient (REF) | payer OTHER, SELFPAY ==
--- NOTE | ~2024-11-12 | MM_ITS ---
EXAMINATION: MM DIAGNOSTIC DIGITAL BREAST TOMOSYNTHESIS, BILATERAL Limited right breast ultrasound. CLINICAL INFORMATION: Call back from baseline screening for bilateral asymmetries. COMPARISON: Mammography: [facility] on PACS. TECHNIQUE: Digital breast tomosynthesis is performed in both the craniocaudal and mediolateral oblique views along with computer-aided detection (CAD). Synthesized 2D images are generated from the tomosynthesis. FINDINGS: The breasts are heterogeneously dense, which may obscure small masses (ACR BI-RADS breast composition Category c). Left: Previously seen asymmetry in the lateral left breast on CC view does not persist on additional imaging projections and likely represented overlapping breast tissue. No suspicious calcifications or other abnormal findings. Right: Circumscribed oval mass measuring 8 -9 mm in the upper central breast. No suspicious calcifications or other abnormal findings. Targeted color Doppler ultrasound scanning in the right breast demonstrates a simple cyst at 11o'clock 3 cm from the nipple measuring 8 x 5 x 10 mm which correlates with the circumscribed oval mass on mammography and is benign. MM/MM tomosynthesis added views L IMPRESSION: Right: Simple cyst on ultrasound. Benign. Left: Negative. ASSESSMENT: BI-RADS BI-RADS 2 - Benign Findings RECOMMENDATION: 1 year F/U Results were provided to the patient at time of visit by the technologist. This patient's information was entered into a reminder system with a target due date for their next mammogram. Electronically signed by: Franchesca Bearden DO 11/12/2024 01:13 PM EDT Workstation: [id number]
== END 2024-11-12 12:12 | disposition home or self-care (01) ==
LOC: HO.MAMMO 12:11
PROVIDERS: PCP Internal Medicine
DX: N64.89 Other specified disorders of breast (principal); R92.333 Mammographic heterogeneous density, bilateral breasts; N60.01 Solitary cyst of right breast
CPT/HCPCS: 76642; 77061; 77065

== ENCOUNTER → 2024-11-12 13:00 | Outpatient (BNV) | payer OTHER, SELFPAY | PROVIDERS: PCP Internal Medicine; Visit Provider Internal Medicine | DX: R92.8 Other abnormal and inconclusive findings on diagnostic imaging of breast (principal) | CPT/HCPCS: 76642; 77062; 77066 ==

== ENCOUNTER 2025-04-03 10:33 | Outpatient (AMB) | payer OTHER, SELFPAY ==
--- NOTE | 2025-04-03 10:37 | A.OFFPC_ITS ---
Vital Signs 04/03/25 10:38 Height 5 ft 2 in Weight 150 lb 2 oz BMI 27.5 BP 126/78 Blood Pressure Location Lt brachial Position Sitting Pulse 88 Pulse Source Pulse Oximeter Pulse Oximetry (%) 95 Oxygen Delivery Method Room Air Intake Visit Reasons: annual exam Child Center Assistant Required: No Accompanied by: Self / Same As Patient Allergies Penicillins Allergy (Intermediate, Verified 04/03/25 11:20) hives,SOB acetaminophen (From VICODIN) Allergy (Unknown, Verified 04/03/25 11:20) SOB/HIVES hydrocodone (From VICODIN) Allergy (Unknown, Verified 04/03/25 11:20) SOB/HIVES Sulfa (Sulfonamide Antibiotics) Allergy (Unknown, Verified 04/03/25 11:20) Hives sulfamethoxazole (From Bactrim) Allergy (Unknown, Verified 04/03/25 11:20) HIVES trimethoprim (From Bactrim) Allergy (Unknown, Verified 04/03/25 11:20) HIVES Medication List - Last Reconciled 04/03/25 by Wendi Ricci PA-C disulfiram 250 mg PO DAILY miscellaneous medical supply (Blood Pressure Cuff) As directed once daily nicotine (polacrilex) 4 mg buccal Q8H PRN Tobacco use date assessed: 04/03/25 Dental Screening Dental Screen Date: 04/03/25 Did you have a dental visit in the last 12 months?: Yes Did you have a dental problem in the last 6 months where you did not have access to dental care?: No Was dental information given to patient?: Patient has dentist HPI annual exam HPI Details 44 year old female with past medical his tory of depression, anxiety, alcohol and tobacco use , difficulty concentrating last seen 08/2024 coming in for annual exam. Presenting with depression, anxiety, ADHD, and asthma. The patient has been experiencing depression and has been taking sertraline, recently increasing the dose to 100 mg daily. The patient reports significant anxiety exacerbated by personal stressors, including legal issues and a family member's cancer diagnosis. The patient has a history of ADHD, which contributes to difficulty concentrating and managing daily tasks. The patient reports asthma exacerbations, likely induced by allergies and stress, and has not been using an inhaler regularly. The patient smokes approximately five cigarettes a day, reduced from ten to twelve previously, and uses nicotine lozenges intermittently. vaccines: Due for TDap and given today mammo: UTD colonoscopy: Cologuard ordered Pap smear: referral to retirement assistant [facility] Medical History Hx LEEP (loop electrosurgical excision procedure), cervix, Surgical History History of repair of ACL Family History Maternal Uncle Kidney malignancy Mother Breast cancer Thyroid cancer Maternal Grandfather Lung cancer Paternal Grandfather Lung cancer Social History Housing: House Alcohol intake: former Patient Tobacco Use Status: Current everyday Tobacco user Tobacco use type: Cigarette Cigarettes Per Day: 5 e-Cigarette/Vaping Use: Never Used Second Hand Smoke Exposure: No Substance Use Type: Marijuana service: No Current occupational status: employed Current occupational exposures/hazards: No Cognitive needs: No Hearing needs: No Vision needs: Yes Questionnaire PHQ-9 Over the last 2 weeks, how often have you been bothered by any of the following problems? 1. Little interest or pleasure in doing things: several days 2. Feeling down, depressed, or hopeless: several days 3. Trouble falling or staying asleep, or sleeping too much: several days 4. Feeling tired or having little energy: several days 5. Poor appetite or overeating: not at all 6. Feeling bad about yourself - or that you are a failure or have let yourself or your family down: several days 7. Trouble concentrating on things, such as reading the newspaper or watching television: nearly every day 8. Moving or speaking so slowly that other people could have noticed. Or the opposite - being so fidgety or restless that you have been moving around a lot more than usual: nearly every day 9. Thoughts that you would be better off or of hurting yourself in some way: not at all Total score: 11 Depression Screening Interpretation: Positive Depression Screening Follow-up: Existing condition and In treatment Depression Screening Done: Yes 25890 - PHQ-9 Billing: Yes Source: Developed by Drs. Tressa Calderón Kurt Kroenke and colleagues, with an educational jessica from [email or web address]. Thrive Questionnaire Date Thrive assessed: 04/03/25 RACHEL-7 AMB Questionnaire RACHEL-7 Date RACHEL - 7 assessed: 04/03/25 Feeling nervous, anxious, or on edge: 3 = Nearly every day Not being able to stop or control worryin = Nearly every day Worrying too much about different things: 3 = Nearly every day Trouble relaxin = Nearly every day Being so restless that it is hard to sit still: 3 = Nearly every day Becoming easily annoyed or irritable: 3 = Nearly every day Feeling afraid as if something awful might happen: 2 = More than half the days Total RACHEL-7 score (0-4 normal; 5-9 mild; 10-14 moderate; 15-21 severe): 20 Source: Developed by Drs. Simba Mills, Tressa Kirkland, Charles Pratt and colleagues, with an educational jessica from [email or web address]. RACHEL-7 Assessment Billing RACHEL-7 Assessment Tool: RACHEL-7 Assessment 82432 Review of Systems Const Denies body aches, Denies fatigue, Denies fever(s), Denies frequent falls, Denies headache(s) and Denies weakness Eyes Reports no additional complaints and Denies change in vision ENT Denies dysphagia, Denies dizziness, Denies facial pain, Denies headache(s), Denies nasal congestion and Denies odynophagia Card Denies chest pain, Denies syncope, Denies irregular heart rhythm, Denies leg edema, Denies lightheadedness and Denies dyspnea Resp Denies cough and Denies dyspnea GI Denies constipation, Denies dysphagia, Denies dyspepsia, Denies diarrhea, Denies nausea, Denies odynophagia and Denies vomiting Denies urinary frequency, Denies dysuria, Denies urinary hesitancy and Denies urinary urgency Musc Denies back pain and Denies myalgias Skin/Breast Reports system reviewed and no additional complaints, except as documented Neuro Denies dizziness, Denies syncope, Denies frequent falls, Denies headache(s) and Denies weakness Psych Reports no additional complaints Endo Denies fatigue Physical exam (Primary Care) Vital Signs: Last Vital Signs Pulse 88 04/03/25 10:38 BP 126/78 04/03/25 10:38 Pulse Ox 95 04/03/25 10:38 Oxygen Delivery Method Room Air 04/03/25 10:38 BMI result Body Mass Index 27.5 Tobacco/Smoking Status: Tobacco use Status Tobacco use date assessed 04/03/25 04/03/25 10:39 Patient Tobacco Use Status Current everyday Tobacco 04/03/25 10:39 Tobacco use type Cigarette 04/03/25 10:39 e-Cigarette/Vaping Use Never Used 04/03/25 10:39 Are you ready to quit: Yes Tobacco cessation counseling provided: Yes Items discussed: Nicotine replacement and Other Relapse Prevention: weight gain after smoking is common and discussed dietary, exercise and/or lifestyle changes CPT code: 00618 - 4-10 Minutes PHQ-9: PHQ-9 Score PHQ-9: Total score 11 04/03/25 11:54 Depression Screening Interpretation: Positive Depression Screening Follow-up: Existing condition and In treatment Thrive Assessment: Date of Thrive Assessment Date Thrive assessed 04/03/25 04/03/25 10:39 Const General: cooperative, healthy appearing, comfortable and no acute distress Orientation/consciousness: patient oriented x3 HENMT Head: Yes normocephalic Ears: hearing grossly normal bilaterally, external ears normal, TM's normal bi laterally and EAC's normal General nose exam: Normal external nose present Face and sinus: Yes normal facial exam and Yes sinuses nontender Mouth: Normal oral and palatal mucosa present and tongue normal Throat: Yes posterior oropharynx normal Eyes General: appearance normal, both eyes and all related structures Conjunctivae: conjunctivae normal Pupils: Equal, round and reactive pupils present EOM: EOMs intact bilaterally and No Nystagmus present Neck Neck: Yes normal visual inspection, Yes full ROM and Yes no lymphadenopathy Chest Chest palpation & inspection: normal inspection of the chest Resp Effort & Inspection: normal respiratory effort Auscultation: clear to auscultation bilaterally, no crackles, no rales, no rhonchi, no wheezes and breath sounds present Cardio Rate: regular rate Rhythm: regular rhythm Peripheral pulses: radial pulses present and dorsalis pedis present GI Inspection: Yes normal to inspection and No Abdominal wall edema Palpation (GI): Soft to palpation, not firm and nontender Auscultation: normal bowel sounds Rectal Exam - Female: deferred General: Yes no CVA tenderness Back/Spine/Pelvis Back: no CVA tenderness Skin General skin exam: no rashes or lesions noted Neuro General: patient oriented x3 Cranial nerves: Yes Equal, round and reactive pupils present, Yes Midline tongue present, Yes Ability to bilaterally elevate shoulders present and No Nystagmus present Gait exam (Neuro): Normal gait present Extrem General: Yes normal to inspection, Yes full ROM, No no pedal edema and No edema Psych Speech and movement: Normal speech and movement present Affect: normal affect Insight: Good insight present (Psych) Judgement: Good judgement present (Psych) Immunizations Boostrix Tdap 2.5 Lf unit-8 mcg-5 Lf/0.5 mL intramuscular syringe Performing Provider: Wendi Ricci PA-C [facility] [place] [facility] Administered by: Laquita Monique LPN on 04/03/25 11:54 Dose Route Admin Location Dispensed Lot Number Expiration Date NDC Internal Combustion Engine Assembler 0.5 mL IM Left Deltoid 0.5 mL [id number] 06/12/27 11070-210-17 [facility] Total Dispensed Waste 0.5 mL 0 % VIS Given Date VIS Provided VIS Publication Date 04/03/25 Single Vaccine 21 Eligibility Eligibility Date Funding Source Not [facility] Eligible 04/03/25 Private Coding Level of Care Code Est Pt Prev Care 40-64y(73556) Diagnoses Annual physical exam Z00.00 Anxiety F41.9 Depression F32.A Alcohol abuse F10.10 Elevated blood pressure reading without diagnosis of hypertension R03.0 Difficulty concentrating R41.840 Tobacco abuse Z72.0 Asthma J45.909 Additional Codes RACHEL-7 Assessment Billing - RACHEL-7 Assessment Tool: RACHEL-7 Assessment 83993 ([id number]) PHQ-9 - 26591 - PHQ-9 Billing: Yes ([id number]) Vital Signs *Quality* - CPT code: 55672 - 4-10 Minutes ([id number]) Assessment & Plan Assessment & Plan (1) Annual physical exam: Code(s): Z00.00 - Encounter for general adult medical examination without abnormal findings Category: Medical Plan: Patient is up-to-date on all recommended routine screenings and vaccinations for her age. Cologuard was sent to pharmacy today. And tetanus was updated today. Healthy diet and regular exercise is encouraged. (2) Anxiety: Code(s): F41.9 - Anxiety disorder, unspecified Category: Medical Plan: Patient having increased anxiety and depression plan to add Wellbutrin 150 mg to medication regimen along side sertraline 100 mg for better management. (3) Depression: Code(s): F32.A - Depression, unspecified Category: Medical Plan: See above (4) Alcohol abuse: Code(s): F10.10 - Alcohol abuse, uncomplicated Category: Social Hx Plan: Continue with counselor on continue on Antabuse. (5) Elevated blood pressure reading without diagnosis of hypertension: Code(s): R03.0 - Elevated blood-pressure reading, without diagnosis of hypertension Category: Medical Plan: Avoid salt intake and encourage healthy diet and regular exercise. Blood pressure at goal today (6) Difficulty concentrating: Code(s): R41.840 - Attention and concentration deficit Category: Medical Plan: Patient having difficulty concentrating plan to trial Wellbutrin for ADHD management and await outpatient psych evaluation. (7) Tobacco abuse: Code(s): Z72.0 - Tobacco use Category: Medical Plan: Smoking cigarettes and the use of tobacco can be harmful. We discussed the importance of stopping and options to aid in smoking cessation. Plan to trial nicotine replacement therapy and Wellbutrin (8) Asthma: Code(s): J45.909 - Unspecified asthma, uncomplicated Category: Medical Plan: Asthma currently controlled on present medications. Continue on albuterol as needed. Avoid triggers such as allergies. Patient has not had her inhaler in many months and refill was sent today. Plan The patient will continue with sertraline at 100 mg daily for depression management. Wellbutrin will be added to address both ADHD and anxiety, with an initial prescription of 150 mg extended-release once daily. The patient is advised to monitor for any side effects and report if the medication is too stimulating, in which case a 24-hour formulation may be considered. For asthma management, an albuterol inhaler will be prescribed to be used as needed. The patient is instructed to report if the inhaler is required more than once daily, as this may necessitate additional treatment adjustments. Preventative care measures include scheduling a colon cancer screening with a Cologuard box and updating the tetanus vaccine, which was last administered in 2012. The patient is encouraged to continue reducing cigarette use and to utilize nicotine loze nges as needed. This note was constructed using voice recognition software. While every effort has been made to ensure accuracy and rail detector car operator, still areas may have been included sometimes these areas may affect the content or meeting of the given symptoms. Total time spent caring for the patient today was 30 minutes. This includes time spent before the visit reviewing the chart, time spent during the visit, and time spent after the visit and documentation. Patient was informed and verbally consented to the use of an ambient scribe for clinic note documentation during this visit. Orders: Orders TDaP Immunization Today Z23 - Encounter for immunization Referrals Cologuard Test Z12.11 - Encounter for screening for malignant neoplasm of colon, Z12.12 - Encounter for screening for malignant neoplasm of rectum Medications: New sertraline 100 mg PO DAILY 90 tabs 0RF bupropion HCl XL (Wellbutrin XL) 150 mg PO QAM 90 tabs 0RF albuterol sulfate 90 mcg/actuation (Ventolin HFA) 1 inh inhalation QID 8.5 grams 0RF Refilled nicotine (polacrilex) 4 mg buccal Q8H PRN 24 ea 1RF nicotine cravings
[2025-04-03 10:38] VITALS: BP 126/78; PULSE 88; O2SAT 95; BMI 27.5
--- OUTSIDE RECORDS SUMMARY | 2025-04-03 10:38 | XMS_ITS | Encounter Summary ---
Author Organization [employer] Address [address] [place] [address] Care Team Providers Care Utility Mechanic Name Role Phone Unavailable Primary Care Provider Unavailabl e Reason for Visit * Reason Onset Date Comments case back from lab 12/28/2023 Encounter Details Date Type Department Care Team ([facility] st Contact Info) Description 12/28/2023 Telephone [facility] ADULT DENTAL [address] [place] [address] Gladys Greenwood BDS case back from lab [...]
== END 2025-04-03 11:55 | disposition home or self-care (01) ==
LOC: HO.HMCH 10:34
DX: Z00.00 Encounter for general adult medical examination without abnormal findings (principal); F41.9 Anxiety disorder, unspecified; F32.A Depression, unspecified; F10.10 Alcohol abuse, uncomplicated; R03.0 Elevated blood-pressure reading, without diagnosis of hypertension; R41.840 Attention and concentration deficit; Z72.0 Tobacco use; J45.909 Unspecified asthma, uncomplicated; Z23 Encounter for immunization

== ENCOUNTER → 2025-04-03 10:33 | Outpatient (BNVA) | payer OTHER, SELFPAY | DX: Z00.00 Encounter for general adult medical examination without abnormal findings (principal); F32.A Depression, unspecified; F41.9 Anxiety disorder, unspecified; F90.9 Attention-deficit hyperactivity disorder, unspecified type; J45.909 Unspecified asthma, uncomplicated; F10.10 Alcohol abuse, uncomplicated; F17.210 Nicotine dependence, cigarettes, uncomplicated; Z23 Encounter for immunization | CPT/HCPCS: 90471; 90715; 96127; 99396 ==

== ENCOUNTER 2025-04-27 15:22 | Outpatient (AMB) | payer OTHER, SELFPAY ==
[2025-04-27 15:43] VITALS: BP 135/87; PULSE 124; RESP 14; O2SAT 98
--- NOTE | 2025-04-27 15:43 | AM.OFFWIN_ITS ---
Intake Vital Signs 04/27/25 15:43 04/27/25 15:51 Height 5 ft 2 in Weight 138 lb BMI 25.2 BP 135/87 136/76 Blood Pressure Location Lt brachial Lt brachial Position Sitting Sitting Respiration 14 Pulse 124 H 138 H Pulse Source Pulse Oximeter Pulse Oximeter Temp 98.8 F Temp Source Oral Pulse Oximetry (%) 98 96 Oxygen Delivery Method Room Air Room Air Intake Visit Reasons: EP High BP 131/88-215/120, BAD headache Intake Note: Pt came into the [facility] clinic, ambulated (I) gait steady. Pt A/o x 3 no shortness of breath noted. Speaks in full sentences. C/o headache radiating to bilateral shoulder blades x 2 weeks. Pt stated that she has been alternating medications Tylenol and Ibprofen 800mo po. Last dose of Ibprofen was at 1348 today. Pt bilateral eyes are slightly jamaal. Khushi (DNP), Natacha and Calvin (CMAs) aware. EKG to be done pt's HR - 124-129. *Patient reports severe anxiety and significant stressors in life* -BRIANNE CALI Patient Tobacco Use Status: Current everyday Tobacco user Allergies Penicillins Allergy (Intermediate, Verified 04/27/25 16:07) hives,SOB acetaminophen (From VICODIN) Allergy (Unknown, Verified 04/27/25 16:07) SOB/HIVES hydrocodone (From VICODIN) Allergy (Unknown, Verified 04/27/25 16:07) SOB/HIVES Sulfa (Sulfonamide Antibiotics) Allergy (Unknown, Verified 04/27/25 16:07) Hives sulfamethoxazole (From Bactrim) Allergy (Unknown, Verified 04/27/25 16:07) HIVES trimethoprim (From Bactrim) Allergy (Unknown, Verified 04/27/25 16:07) HIVES Do you need a note to return to daycare/school/sports/work: Yes HPI HPI Comments History of Present Illness Details 44 y/o Female patient who presents to [facility] walk in clinic with c/o bad headaches associated with Elevated BP readings. She reports significant anxiety exacerbated by personal stressors, including legal issues and a family member's cancer diagnosis. She has been keeping a BP Log from home - a review of the Log shows elevated BP readings everyday ranging from Systolic > 140's-200's and dystolic > 90's - 100's. She is Tachycardic today - will do ECG to r/o GA. Reports Anxious at bedtime with Racing thoughts - wondering if I can add another med for Bedtime to help with anxiety. Currently on Sertraline and Bupropion for anxiety. [facility] Medical History (Updated 04/27/25 @ 16:44 by Khushi Skinner NP) Hypertension Tachycardia Hx LEEP (loop electrosurgical excision procedure), cervix, Surgical History History of repair of ACL Family History Maternal Uncle Kidney malignancy Mother Breast cancer Thyroid cancer Maternal Grandfather Lung cancer Paternal Grandfather Lung cancer Social History Housing: House Alcohol intake: former Patient Tobacco Use Status: Current everyday Tobacco user Tobacco use type: Cigarette Cigarettes Per Day: 5 e-Cigarette/Vaping Use: Never Used Second Hand Smoke Exposure: No Substance Use Type: Marijuana service: No Current occupational status: employed Current occupational exposures/hazards: No Cognitive needs: No Hearing needs: No Vision needs: Yes Review of Systems Const All systems reviewed & are unremarkable except as noted in HPI and below Physical Exam Vital Signs: Last Vital Signs Temp 98.8 F 04/27/25 15:51 Pulse 138 H 04/27/25 15:51 Resp 14 04/27/25 15:43 BP 136/76 04/27/25 15:51 Pulse Ox 96 04/27/25 15:51 Oxygen Delivery Method Room Air 04/27/25 15:51 BMI result Body Mass Index 25.2 Const General: no acute distress and anxious Nutritional Appearance: overweight Orientation/consciousness: patient oriented x3 Resp Effort & Inspection: normal respiratory effort Auscultation: clear to auscultation bilaterally Cardio Rate: tachycardic Heart sounds: S1 normal heart sound present and S2 normal heart sound present Peripheral pulses: femoral pulses present and popliteal pulses present Neuro General: patient oriented x3 Psych Speech and movement: Normal speech and movement present Affect: Anxious affect present Thought content: suicidality and no homicidality Insight: Good insight present (Psych) Assessment & Plan Assessment & Plan (1) Tachycardia: Code(s): R00.0 - Tachycardia, unspecified Plan: Ordered Metoprolol 25 mg Daily Will have Patient f/u with Nurse navigator in 2 weeks for B/P check in Office. Advised to go to ED if symptoms worsen. (2) Hypertension: Code(s): I10 - Essential (primary) hypertension Plan: Ordered Metoprolol 25 mg Daily Will have Patient f/u with Nurse navigator in 2 weeks for B/P check in Office. (3) Anxiety: Code(s): F41.9 - Anxiety disorder, unspecified Plan: Added Hydroxyzine 25 mg TID for Anxiety. F/U with PCP for further med adjustment if needed. Medications: New metoprolol tartrate 25 mg PO DAILY 30 tabs 0RF I10 - Essential (primary) hypertension, R00.0 - Tachycardia, unspecified hydroxyzine HCl 25 mg PO TID PRN 90 tabs 0RF anxiety F41.9 - Anxiety disorder, unspecified Coding Level of Care Code Est Pt Level 4 (65755) Diagnoses Tachycardia R00.0 Hypertension I10 Anxiety F41.9 Time Spent (min) 20
[2025-04-27 15:51] VITALS: BP 136/76; PULSE 138; TEMP 37.1; O2SAT 96; BMI 25.2
--- OUTSIDE RECORDS SUMMARY | 2025-04-27 18:25 | XMS_ITS | Encounter Summary ---
Author Organization [employer] Address [address] [facility] [address] [place] [address] Care Team Providers Care Agency Owner Name Role Phone Unavailable Primary Care Provider Unavailabl e Reason for Visit * Reason Onset Date Comments case back from lab 12/28/2023 Encounter Details Date Type Department Care Team ([facility] st Contact Info) Description 12/28/2023 Telephone [facility] D[facility] [address] [place] [address] Gladys Greenwood BDS case back from lab [...]
--- OUTSIDE RECORDS SUMMARY | 2025-04-27 18:25 | XMS_ITS | Encounter Summary ---
Author Organization [employer] Address [address] [facility] [address] [address] [place] [address] Care Team Providers Care Retail Pharmacy Technician Name Role Phone Unavailable Primary Care Provider Unavailabl e Encounter Details Date Type Department Care Team (Late st Contact Info) Description 09/05/2023 Abstract [facility] ADULT DENTAL [address] [place] [address] Gladys Greenwood BDS Social History Tobacco Use [...]
--- OUTSIDE RECORDS SUMMARY | 2025-04-27 18:25 | XMS_ITS | Encounter Summary ---
Author Organization [employer] Address [address] [facility] [address] [place] [address] Care Team Providers Care Interventional Nurse Name Role Phone Unavailable Primary Care Provider Unavailabl e Reason for Visit * Reason Onset Date Comments Prior Authorization 08/07/2023 Encounter Details Date Type Department Care Team (Late st Contact Info) Description 08/07/2023 Telephone [facility] ADULT DENTAL [address] [place] [address] Gladys Greenwood BDS Prior Authorization Social History [...]
--- OUTSIDE RECORDS SUMMARY | 2025-04-27 18:25 | XMS_ITS | Clinical Summary ---
Author Organization [employer] [facility] Address [address] [place] [address] [address] [place] [address] Care Team Providers Care Imaging Engineer Name Role Phone Unavailable Primary Care [...] FIT 1978 FOBT 1978 HIV Screening 1978 SDOH Screening 1978 Sigmoidoscopy 1978 Disability Screening 1978 Alcohol/Substance Use Screening 1990 Family Planning (PISQ) 1993 Hepatitis C Screening 1996 Hepatitis B Vaccines (1 of 3 - 19+ 3-dose series) 1997 Pneumococcal Vaccine: Pediatrics (0 to 5 Years) and At-Risk Patients (6 to 49) Years (1 of 2 - PCV) 1997 Pap Smear 1999 Cervical Cancer Screening 2008 HPV/Cotest 2008 Mammogram 2018 DTaP/Tdap/Td Vaccines (4 - T d or Tdap) 02/18/2023 02/18/2013, 04/18/2012, 05/15/2007 Tobacco Screening 01/10/2025 01/11/2024 COVID-19 Vaccine (3 - 2024-2 6 season) 2025 01/18/2021, 12/21/2020 Influenza Vaccine (#1) 2025 3, 05/08/2012, 11/07/2010 Dental X-Ray: Full Mouth 07/27/2026 07/26/2023 Zoster [...] patient's age to complete this topic Meningococcal B Vaccine Aged Out No l onger eligible based on patient's age to complete [...]
== END 2025-04-27 16:39 | disposition home or self-care (01) ==
PROVIDERS: Visit Provider Nurse Practitioner Family
DX: R00.0 Tachycardia, unspecified (principal); I10 Essential (primary) hypertension; F41.9 Anxiety disorder, unspecified

== ENCOUNTER → 2025-04-27 15:22 | Outpatient (BNVA) | payer OTHER, SELFPAY | PROVIDERS: Visit Provider Nurse Practitioner Family | DX: I10 Essential (primary) hypertension (principal); R51.9 Headache, unspecified; F41.9 Anxiety disorder, unspecified; R00.0 Tachycardia, unspecified | CPT/HCPCS: 99212 ==

== ENCOUNTER 2025-05-11 11:37 | Outpatient (REF) | payer OTHER, SELFPAY ==
[2025-05-11 11:49] LABS: MANUAL DIFF FLAG NO
[2025-05-11 12:15] LABS: Hematocrit 39.9 % (37.0-47.0); Hemoglobin 13.2 g/dl (12.0-16.0); Imm Gran Abs Auto 0.01 X10*3/uL (0.00-0.03); Imm Gran Pct Auto 0.2 % (0.0-0.4); Lymphocytes Absolute Auto 2.3 X10*3/uL (1.2-4.9); Mean Corpuscular HGB Conc 33.1 g/dl (31.0-35.0); Mean Corpuscular Hemoglobin 32.0 pg (27.0-33.0); Mean Corpuscular Volume 96.6 fL (80.0-98.0); NRBC Abs Auto 0.000 X10*3/uL (0.0-0.012); NRBC Pct Auto 0.0 /100WBC (0.0-0.2); Platelet Count 200 X10*3/uL (160-400); Red Blood Count 4.13 X10*6/uL (4.20-5.50); White Blood Count 5.8 X10*3/uL (4.8-10.8)
[2025-05-11 12:47] LABS: Alanine Aminotransferase 13 U/L (0-31); Albumin Level 3.9 g/dL (3.5-5.0); Alkaline Phosphatase 83 U/L (39-117); Anion Gap 13 (12-20); Aspartate Amino Transferase 25 U/L (5-31); Blood Urea Nitrogen 17 mg/dL (9-16); Calcium 8.8 mg/dL (8.4-10.2); Carbon Dioxide 28 mmol/L (22-29); Chloride 104 mmol/L (96-108); Cholesterol 305 mg/dL (<200); Estimated Glomerular Filt Rate > 60; HDL Cholesterol 75 mg/dL (>40); Potassium 4.4 mmol/L (3.3-5.1); Sodium 141 mmol/L (135-145); Total Protein 6.6 g/dL (6.5-8.0); Triglycerides 91 mg/dL (<150)
[2025-05-11 13:08] LABS: Free T4 (Free Thyroxine) 0.86 ng/dL (0.71-1.85)
[2025-05-11 13:17] LABS: Folate 3.8 ng/mL (> or = 4.0); Vitamin B12 369 pg/mL (200-900)
--- OUTSIDE RECORDS SUMMARY | 2025-05-11 14:20 | XMS_ITS | Clinical Summary ---
Author Organization [employer] [facility] Address [address] [place] [address] [address] [place] [address] Care Team Providers Care Fish Hatchery Inspector Name Role Phone Unavailable Primary Care Provider [...]
--- OUTSIDE RECORDS SUMMARY | 2025-05-11 14:20 | XMS_ITS | Encounter Summary ---
Author Organization [employer] Address [address] [facility] [address] [place] [address] Care Team Providers Care Car Pilot Name Role Phone Unavailable Primary Care Provider Unavailabl e Reason for Visit * Reason Onset Date Comments Prior Authorization 08/07/2023 Encounter Details Date Type Department Care Team (Late st Contact Info) Description 08/07/2023 Telephone [facility] ADULT DENTAL [address] [place] [address] Gladys Greenwood BDS Prior Authorization Social History [...]
--- OUTSIDE RECORDS SUMMARY | 2025-05-11 14:20 | XMS_ITS | Encounter Summary ---
Author Organization [employer] Address [address] [facility] [address] [place] [address] Care Team Providers Care Risk Assessor Name Role Phone Unavailable Primary Care Provider Unavailabl e Reason for Visit * Reason Onset Date Comments case back from lab 12/28/2023 Encounter Details Date Type Department Care Team ([facility] st Contact Info) Description 12/28/[address] [facility] ADULT DENTAL [address] [place] [address] Gladys Greenwood BDS case back from lab [...]
--- OUTSIDE RECORDS SUMMARY | 2025-05-11 14:20 | XMS_ITS | Encounter Summary ---
Author Organization [email or web address] Address [address] [facility] [address] [place] [address] Care Team Providers Care Director Of Contracts Name Role Phone Unavailable Primary Care Provider Unavailabl e Encounter Details Date Type Department Care Team (Late st Contact Info) Description 09/05/2023 Abstract [facility] [address] [place] [address] Gladys Greenwood BDS Social History Tobacco Use [...]
== END 2025-05-11 11:38 | disposition home or self-care (01) ==
LOC: HO.LAB 11:37
DX: Z00.00 Encounter for general adult medical examination without abnormal findings (principal); E78.00 Pure hypercholesterolemia, unspecified; R20.0 Anesthesia of skin; R20.2 Paresthesia of skin
CPT/HCPCS: 36415; 80053; 80061; 82306; 82607; 82746; 84439; 84443; 85025

== ENCOUNTER 2025-07-22 15:42 | Outpatient (AMB) | payer OTHER, SELFPAY ==
[2025-07-22 15:50] VITALS: BP 120/62; PULSE 107; TEMP 36.8; O2SAT 97
--- NOTE | 2025-07-22 15:50 | AM.OFFWIN_ITS ---
Intake Vital Signs 07/22/25 15:50 Height 5 ft 2 in BMI Reason not done Patient refused/unable BP 120/62 Blood Pressure Location Lt brachial Position Sitting Pulse 107 H Pulse Source Pulse Oximeter Temp 98.2 F Temp Source Oral Pulse Oximetry (%) 97 Oxygen Delivery Method Room Air Intake Visit Reasons: EP Lt foot injury Intake Note: pt presents with left foot pain, swelling and bruising after falling down 3 stairs yesterday Patient Tobacco Use Status: Current everyday Tobacco user Allergies Penicillins Allergy (Intermediate, Verified 07/22/25 15:55) hives,SOB acetaminophen (From VICODIN) Allergy (Unknown, Verified 07/22/25 15:55) SOB/HIVES hydrocodone (From VICODIN) Allergy (Unknown, Verified 07/22/25 15:55) SOB/HIVES Sulfa (Sulfonamide Antibiotics) Allergy (Unknown, Verified 07/22/25 15:55) Hives sulfamethoxazole (From Bactrim) Allergy (Unknown, Verified 07/22/25 15:55) HIVES trimethoprim (From Bactrim) Allergy (Unknown, Verified 07/22/25 15:55) HIVES Do you need a note to return to daycare/school/sports/work: No HPI HPI Comments History of Present Illness Details Chief Complaint: ?Left foot pain after falling down stairs.? History of Present Illness: Brittney is a 44-year-old female who presents today for evaluation of left foot pain following a fall late Sunday evening. She reports tumbling down three flights of stairs, during which her left foot twisted awkwardly; she then slid down on her buttocks but states she did not strike her buttocks on the stairs ( I tried to have her clarify this but she states hard to expain). Denies HS and LOC. She denies any impact to the head, chest, or abdomen. Since the incident, she has experienced pain localized to the forefoot involving three toes, describing them as ?very tingly and numb.? 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 Not on blood thinners GCS 15 NIHSS 0 44-year-old female with left forefoot pa in and bruising after mechanical fall. Problem #1: Left foot injury (rule out fracture vs. sprain) Assessment: Acute injury to the left forefoot with pain, bruising, and sensory changes following a fall down stairs. Vascular exam intact. Plan: * Obtain left foot radiographs today to evaluate for fracture. * Patient escorted to radiology and instructed to return to Room?11 after imaging. * Await imaging results for further management. * 1634 Xray L foot pending final read no gross fx noted on my review Walking shoe given for suspected L foot sprain & crutches PFSH Medical History Hypertension Tachycardia Hx LEEP (loop electrosurgical excision procedure), cervix, Surgical History History of repair of ACL Family History Maternal Uncle Kidney malignancy Mother Breast cancer Thyroid cancer Maternal Grandfather Lung cancer Paternal Grandfather Lung cancer Social History Housing: House Alcohol intake: former Patient Tobacco Use Status: Current everyday Tobacco user Tobacco use type: Cigarette Cigarettes Per Day: 5 e-Cigarette/Vaping Use: Never Used Second Hand Smoke Exposure: No Substance Use Type: Marijuana service: No Current occupational status: employed Current occupational exposures/hazards: No Cognitive needs: No Hearing needs: No Vision needs: Yes Review of Systems Const All systems reviewed & are unremarkable except as noted in HPI and below Physical Exam Exam Exam: General: Patient ambulatory with walker. Appears in no acute distress Left Foot: Significant bruising noted over the dorsal forefoot. Marked tenderness to palpation over the involved area. Sensation diminished (?tingly/numb?) in three toes (1,2,3) as reported by patient. Anterior tibial and dorsalis pedis pulses palpable bilaterally.Ambulating w/ walker CV: RRR Lungs: CTA Eyes: BRANDON Neuro: non focal, A&O X4 CN 2-12 intact Vital Signs: Last Vital Signs Temp 98.2 F 07/22/25 15:50 Pulse 107 H 07/22/25 15:50 BP 120/62 07/22/25 15:50 Pulse Ox 97 07/22/25 15:50 Oxygen Delivery Method Room Air 07/22/25 15:50 vss Assessment & Plan Assessment & Plan (1) Sprain of left foot: Code(s): S93.602A - Unspecified sprain of left foot, initial encounter Plan Take your medications as prescribed. If you were prescribed antibiotics today, it is important that you take your medication to their entirety, do not skip any doses, do not finish them early. Follow-up with your primary care provider this week. Go to the emergency department with new or worsening symptoms. In case of emergency call 911 Coding Level of Care Code Est Pt Level 3 (87838) Diagnoses Sprain of left foot S93.602A
--- OUTSIDE RECORDS SUMMARY | 2025-07-22 18:36 | XMS_ITS | Encounter Summary ---
Author Organization [employer] Address [address] [facility] [address] [place] [address] Care Team Providers Care Geospatial Scientist Name Role Phone Unavailable Primary Care Provider Unavailabl e Encounter Details Date Type Department Care Team (Late st Contact Info) Description 09/05/2023 Abstract [facility] ADULT DENTAL [address] [place] [address] Gladys Greenwood BDS Social History Tobacco Use [...]
--- OUTSIDE RECORDS SUMMARY | 2025-07-22 18:36 | XMS_ITS | Encounter Summary ---
Author Organization [employer] Address [address] [facility] [address] [place] [address] Care Team Providers Care Sensor Operator Name Role Phone Unavailable Primary Care Provider Unavailabl e Reason for Visit * Reason Onset Date Comments Prior Authorization 08/07/2023 Encounter Details Date Type Department Care Team ([facility] st Contact Info) Description 08/07/2023 Telephone [facility] ADULT DENTAL [address] [place] [address] Gladys Greenwood BDS Prior Authorization Social History [...]
--- OUTSIDE RECORDS SUMMARY | 2025-07-22 18:36 | XMS_ITS | Encounter Summary ---
Author Organization [employer] Address [address] [facility] [address] [place] [address] Care Team Providers Care Dinkey Locomotive Operator Name Role Phone Unavailable Primary Care Provider Unavailabl e Reason for Visit * Reason Onset Date Comments case back from lab 12/28/2023 Encounter Details Date Type Department Care Team ([facility] st Contact Info) Description 12/28/2023 Telephone [facility] ADULT DENTAL [address] [place] [address] Gladys Greenwood BDS case back from lab [...]
--- OUTSIDE RECORDS SUMMARY | 2025-07-22 18:36 | XMS_ITS | Clinical Summary ---
Author Organization [employer] [facility] Address [address] [place] [address] [address] [place] [address] Care Team Providers Care Tube Drawing Supervisor Name Role Phone Unavailable Primary Care Provider [...]
== END 2025-07-22 16:40 | disposition home or self-care (01) ==
PROVIDERS: Visit Provider Physician Assistant
DX: S93.602A Unspecified sprain of left foot, initial encounter (principal)

== ENCOUNTER 2025-07-22 15:42 | Outpatient (REF) | payer OTHER, SELFPAY ==
--- NOTE | ~2025-07-22 | XR_ITS ---
EXAMINATION: XR FOOT, LEFT CLINICAL INFORMATION: M79.672 - Pain in left foot , dorsal foot swelling and ecchymosis COMPARISON: None available. TECHNIQUE: AP, lateral, and oblique views of the left foot. FINDINGS: The bones and soft tissues are normal. No fracture. Alignment is anatomic. Joint spaces are maintained. XR/XR foot LT min 3V IMPRESSION: Unremarkable left foot Electronically signed by: Sabas Tolbert MD 07/22/2025 04:32 PM EST
== END 2025-07-22 15:43 | disposition home or self-care (01) ==
LOC: HO.HMGCX 15:42
PROVIDERS: Visit Provider Physician Assistant
DX: S93.602A Unspecified sprain of left foot, initial encounter (principal); W19.XXXA Unspecified fall, initial encounter
CPT/HCPCS: 73630; 99212

== ENCOUNTER → 2025-07-22 16:18 | Outpatient (BNV) | payer OTHER, SELFPAY | PROVIDERS: Visit Provider Radiology Diagnostic Radiology | DX: M79.672 Pain in left foot (principal) | CPT/HCPCS: 73630 ==

== ENCOUNTER 2025-08-12 13:19 | Outpatient (AMB) | payer OTHER, SELFPAY ==
--- NOTE | 2025-08-12 13:19 | A.OFFPC_ITS ---
Intake Visit Reasons: antidepressants and anxiety medicine Engagement Liaison Required: No Accompanied by: Self / Same As Patient Allergies Penicillins Allergy (Intermediate, Verified 08/12/25 13:37) hives,SOB acetaminophen (From VICODIN) Allergy (Unknown, Verified 08/12/25 13:37) SOB/HIVES hydrocodone (From VICODIN) Allergy (Unknown, Verified 08/12/25 13:37) SOB/HIVES Sulfa (Sulfonamide Antibiotics) Allergy (Unknown, Verified 08/12/25 13:37) Hives sulfamethoxazole (From Bactrim) Allergy (Unknown, Verified 08/12/25 13:37) HIVES trimethoprim (From Bactrim) Allergy (Unknown, Verified 08/12/25 13:37) HIVES Medication List - Last Reconciled 08/12/25 by Wendi Ricci PA-C albuterol sulfate 90 mcg/actuation (Ventolin HFA) 1 inh inhalation QID atorvastatin (Lipitor) 10 mg PO BEDTIME bupropion HCl XL 300 mg PO QAM cholecalciferol (vitamin D3) 25 mcg PO DAILY disulfiram 250 mg PO DAILY hydroxyzine HCl 25 mg PO TID PRN metoprolol tartrate 25 mg PO DAILY miscellaneous medical supply (Blood Pressure Cuff) As directed once daily multivitamin 1 tab PO DAILY sertraline 100 mg PO DAILY Tobacco use date assessed: 04/03/25 Dental Screening Dental Screen Date: 04/03/25 HPI antidepressants and anxiety medicine HPI Details 44-year-old female with past medical his tory of tobacco and alcohol use, depression, anxiety, asthma, hypertension last seen 04/2025 presenting via telehealth for follow up on mental health. Sertraline and Wellbutrin were increased in the interim and patient was started on hydroxyzine as needed. Patient tells us today she has been doing well on the increased dose of the Wellbutrin 300 mg and feels it is beneficial for her anxiety and depression. She has run out of the sertraline but has been taking the 50 mg tablets which he feels her less effective. She admits she did not follow up with [facility] as they called during a difficult time while she was caring for her grandmother who has since passed. She has no other acute concerns today [facility] Medical History Hypertension Tachycardia Hx LEEP (loop electrosurgical excision procedure), cervix, Surgical History History of repair of ACL Family History Maternal Uncle Kidney malignancy Mother Breast cancer Thyroid cancer Maternal Grandfather Lung cancer Paternal Grandfather Lung cancer Social History Housing: House Alcohol intake: former Patient Tobacco Use Status: Current everyday Tobacco user Tobacco use type: Cigarette Cigarettes Per Day: 3 Years Smoked: 25 years e-Cigarette/Vaping Use: Never Used Second Hand Smoke Exposure: No Substance Use Type: Marijuana service: No Current occupational status: employed Current occupation: clinical operations leader at [employer] Current occupational exposures/hazards: No Cognitive needs: No Hearing needs: No Vision needs: Yes Questionnaire Thrive Questionnaire Date Thrive assessed: 04/03/25 RACHEL-7 AMB Questionnaire RACHEL-7 Date RACHEL - 7 assessed: 04/03/25 Source: Developed by Drs. Simba Mills, Tressa Kirkland, Charles Pratt and colleagues, with an educational jessica from [employer]. Review of Systems Const Denies body aches, Denies chills, Denies fatigue, Denies fever(s), Denies headache(s) and Reports lethargy Eyes Reports no additional complaints ENT Denies dizziness and Denies headache(s) Card Denies chest pain, Denies syncope, Denies lightheadedness and Denies dyspnea Resp Denies dyspnea GI Denies nausea and Denies vomiting Reports no additional complaints Neuro Denies dizziness, Denies syncope and Denies headache(s) Endo Denies fatigue Physical exam (Primary Care) Vital Signs: Vital signs and physical exam not performed due to nature of telehealth visit Tobacco/Smoking Status: Tobacco use Status Tobacco use date assessed 04/03/25 08/12/25 13:24 Patient Tobacco Use Status Current everyday Tobacco 08/12/25 13:24 Tobacco use type Cigarette 08/12/25 13:24 e-Cigarette/Vaping Use Never Used 08/12/25 13:24 Thrive Assessment: Date of Thrive Assessment Date Thrive assessed 04/03/25 08/12/25 13:24 Coding Level of Care Code Tele Est Pt Level 3 (21710) Diagnoses Anxiety F41.9 Depression F32.A Assessment & Plan Assessment & Plan (1) Anxiety: Code(s): F41.9 - Anxiety disorder, unspecified Category: Medical Plan: For anxiety and depression she will continue on Wellbutrin 300 mg, sertraline 100 mg and hydroxyzine 25 mg t.i.d. as needed. I did send a message to mental health services to help facilitate her referral to [facility]. She also agrees to reach out as well as she is still interested in obtaining a counselor and psychiatrist (2) Depression: Code(s): F32.A - Depression, unspecified Category: Medical Plan: See above Plan This note was constructed using voice recognition software. While every effort has been made to ensure accuracy and drafter structural, still areas may have been included sometimes these areas may affect the content or meeting of the given symptoms. Total time spent caring for the patient today was 20 minutes. This includes time spent before the visit reviewing the chart, time spent during the visit, and time spent after the visit and documentation. Medications: Refilled sertraline 100 mg PO DAILY 90 tabs 1RF hydroxyzine HCl 25 mg PO TID PRN 90 tabs 1RF anxiety F41.9 - Anxiety disorder, unspecified bupropion HCl XL 300 mg PO QAM 90 tabs 1RF
--- OUTSIDE RECORDS SUMMARY | 2025-08-12 13:21 | XMS_ITS | Clinical Summary ---
Author Organization [employer] [facility] Address [address] [place] [address] [address] [place] [address] Care Team Providers Care Manuscript Reader Name Role Phone Unavailable Primary Care Provider [...]
--- OUTSIDE RECORDS SUMMARY | 2025-08-12 13:21 | XMS_ITS | Encounter Summary ---
Author Organization [employer] Address [address] [facility] [address] [place] [address] Care Team Providers Care Reconditioning Associate Name Role Phone Unavailable Primary Care Provider Unavailabl e Reason for Visit * Reason Onset Date Comments case back from lab 12/28/2023 Encounter Details Date Type Department Care Team ([facility] st Contact Info) Description 12/28/2023 Telephone [facility] ADULT DENTAL [address] [place] [address] Gladys Greenwood BDS case back from lab [...]
--- OUTSIDE RECORDS SUMMARY | 2025-08-12 13:21 | XMS_ITS | Encounter Summary ---
Author Organization [employer] Address [address] [facility] [address] [place] [address] Care Team Providers Care Lumber Kiln Operator Name Role Phone Unavailable Primary Care Provider Unavailabl e Reason for Visit * Reason Onset Date Comments Prior Authorization 08/07/2023 Encounter Details Date Type Department Care Team ([facility] st Contact Info) Description 08/07/[address] [facility] ADULT DENTAL [address] [place] [address] Gladys Greenwood BDS Prior Authorization Social History [...]
--- OUTSIDE RECORDS SUMMARY | 2025-08-12 13:21 | XMS_ITS | Encounter Summary ---
Author Organization [employer] Address [address] [facility] [address] [place] [address] Care Team Providers Care Risk And Compliance Analytics Director Name Role Phone Unavailable Primary Care Provider Unavailabl e Encounter Details Date Type Department Care Team (Late st Contact Info) Description 09/05/2023 Abstract [facility] ADULT DENTAL [address] [place] [address] Gladys Greenwood BDS Social History Tobacco Use [...]
== END 2025-08-12 13:50 | disposition home or self-care (01) ==
LOC: HO.HMCH 13:19
DX: F41.9 Anxiety disorder, unspecified (principal); F32.A Depression, unspecified